=== PATIENT | male | born 1960 | race Caucasian/White ===

== ENCOUNTER → 2017-10-05 | Outpatient (CLI) | payer BC ==
--- NOTE | 2017-10-05 14:08 | CT ---
EXAMINATION TYPE: CT soft tissue neck w con DATE OF EXAM: 10/05/2017 HISTORY: SWOLLEN NECK AND PAIN X3-4 MONTHS. 100ML OF OMNI 300. PRIOR ON 12.18.14. SCANNED BY: ANDRA AND TM . COMPARISON: CT neck December 18, 2014 CT DLP: 825 mGycm. Automated Exposure Control for Dose Reduction was Utilized. TECHNIQUE: CT scan of the neck is performed with IV Contrast, patient injected with 100 mL of Omnipa que 300, axial images are obtained, coronal and sagittal reformatted images are reviewed. FINDINGS: Airway: There is persistent prominence of the adenoid tonsils posterior nasopharynx and prominence of the palate or palatine tonsils with prominence of the uvula. Blockage of nasal pharyngeal airway is redemonstrated. Oral pharyngeal airway remains narrowed. Region of epiglottis and vallecula appears w ithin normal limits. Region of the piriform sinuses and vocal cords is felt within normal limits. Hyp opharyngeal airway to proximal trachea is unremarkable. There is mild emphysematous change in lung ap ices with increased AP diameter proximal trachea noted. Thyroid gland is unremarkable. Parotid/submandibular glands: No gross abnormality seen. Carotid/Vascular Structures: There is mild calcified plaque left carotid bulb extending into proximal internal carotid artery redemonstrated more prominent versus prior. No significant stenosis is seen. Osseous Structures: There is loss of normal cervical curvature with mild spurring and disc space narr owing C5-C6 level redemonstrated. Other: No suspicious greater than 1 cm neck adenopathy is seen. There are scattered subcentimeter lym ph nodes throughout the neck bilaterally redemonstrated. Patchy opacification bilateral anterior ethmoid sinuses is redemonstrated on current study. IMPRESSION: Mild emphysematous change redemonstrated. Possible tonsillitis, correlate clinically. No suspicious mass or adenopathy identified. No significant change from prior study.
== END | disposition home or self-care (01) ==
LOC: RADCTMAIN 12:42
PROVIDERS: ATTEND Family Medicine
DX: R59.9 Enlarged lymph nodes, unspecified (principal)
CPT/HCPCS: 70491; Q9967

== ENCOUNTER 2017-11-26 08:05 | Day surgery (SDC) | payer BC ==
[2017-11-17 16:08] VITALS: BMI 29.9
[~2017-11-26 08:05] MED LIST: DEXAMETHASONE SOD PHOSPHATE 10 MG/ML 1 ML VIAL IV ONE; DEXAMETHASONE SOD PHOSPHATE 4 MG/ML 1 ML VIAL IV ONE; FAMOTIDINE 20 MG/2 ML VIAL IV ONE; HYDROmorphone 0.5 MG/0.5 ML SYRINGE IVP PRN; LACTATED RINGERS 1,000 ML IV SCH; MIDAZOLAM 2 MG/2 ML VIAL IV PRN; ONDANSETRON 4 MG/2 ML VIAL IVP ONE; Pre Op ABX Message 1 EACH MISC MISCELLANE ONE
[2017-11-26] MEDS: OXYMETAZOLINE 0.05% NASL SPRAY 1 SPRAY BOTTLE NASAL ONE ×6 (08:39→09:02)
[2017-11-26 08:48] VITALS: RESP 16
[2017-11-26] MEDS ORDERED: PROPOFOL 10 MG/ML 20 ML VIAL IV ONE (09:51)
[2017-11-26] MEDS ORDERED: DEXAMETHASONE SOD PHOS (MDV) 100 MG/10 ML VIAL ONE (09:51)
[2017-11-26] MEDS ORDERED: fentaNYL (PF) 50 MCG/ML 2 ML AMP ONE (09:51)
[2017-11-26] MEDS ORDERED: MIDAZOLAM 2 MG/2 ML VIAL ONE (09:51)
[2017-11-26] MEDS ORDERED: SUCCINYLCHOLINE CHLORIDE 100 MG/5 ML SYR IV ONE (09:51)
[2017-11-26 10:44] VITALS: TEMP 963
--- NOTE | 2017-11-26 10:52 | P.OP ---
Date of Procedure: 11/26/17 Preoperative Diagnosis: Throat pain, nasopharyngeal mass, tonsillar lesion left side, obstructive sleep apnea syndrome Postoperative Diagnosis: Same Procedure(s) Performed: Direct microscopic laryngoscopy with a left tonsil biopsy and a endoscopic removal of a nasopharyngeal mass left-sided Anesthesia: FERNIEA Surgeon: Timi Bowles Estimated Blood Loss (ml): 10 Pathology: other (Left tonsil and nasopharynx) Condition: stable Disposition: PACU Indications for Procedure: This patient has throat pain that has been intermittent but problematic. He has sleep apnea and examination revealed a mass in the left nasopharynx along with some hypertrophy of the hypopharynx. After long discussion we recommended biopsy of this left nasopharyngeal mass along with a direct microscopic laryngoscopy and possible biopsy. All risks, benefits, and alternative therapies were discussed. Consent was obtained and all questions were answered. Operative Findings: Left nasal pharyngeal mass and left tonsillar cystic abscess type lesion noted there was some hypopharyngeal erythema possibly related to laryngopharyngeal reflux Description of Procedure: This patient was taken to the operative room and placed in the supine position. A general inhalation anesthetic was administered to the patient by mask and subsequently intubated with a cuffed endotracheal tube by the department of anesthesia with a functioning IV line in place. Patient was monitored throughout the entire case by the department of anesthesia. A Jako laryngoscope was placed into the patient's mouth with care to avoid any trauma to the lips teeth gums and tongue. Ulcers open tongue was depressed and the entire Mar and hypopharynx was evaluated including the piriform sinus, aryepiglottic folds, base of tongue etc. etc. after complete examination, the left tonsil area revealed a cystic-type mass which was removed with biopsy forceps. Rest of the examination was unremarkable. There was evidence of laryngopharyngeal reflux disease. In addition, the nasopharynx was evaluated with use of an endoscope and we removed a left nasopharyngeal mass directly with biopsy forceps. Hemostasis was spontaneous and complete. The patient tolerated this well and will be taken to postanesthesia recovery in excellent condition. The patient is to contact me if any problems should arise. Cauterization with use of suction electrocautery granulation was used to stop the bleeding of the nasopharynx. We utilized a 0 Gilbert alexis scope for this procedure. We also assisted with use of a mcgivor mouth gag and the tonsil suction.
[2017-11-26 11:56] VITALS: BP 136/85; PULSE 67
== END 2017-11-26 12:11 | disposition home or self-care (01) ==
LOC: OR 08:05
PROVIDERS: ATTEND Otolaryngology
DX: J35.01 Chronic tonsillitis (principal); J03.90 Acute tonsillitis, unspecified; J31.1 Chronic nasopharyngitis; I10 Essential (primary) hypertension; Z86.73 Personal history of transient ischemic attack (TIA), and cerebral infarction without residual deficits; K21.9 Gastro-esophageal reflux disease without esophagitis; E78.5 Hyperlipidemia, unspecified; J44.9 Chronic obstructive pulmonary disease, unspecified; Z87.891 Personal history of nicotine dependence; Z79.899 Other long term (current) drug therapy; J45.909 Unspecified asthma, uncomplicated; N40.0 Benign prostatic hyperplasia without lower urinary tract symptoms; F32.9 Major depressive disorder, single episode, unspecified; F41.9 Anxiety disorder, unspecified; E78.00 Pure hypercholesterolemia, unspecified; Z79.82 Long term (current) use of aspirin; Z79.51 Long term (current) use of inhaled steroids; Z79.52 Long term (current) use of systemic steroids
CPT/HCPCS: 31535; 88305; 88312; J2250; J1100 ×2; J2405; J3010; J0330; J2704

== ENCOUNTER 2018-12-19 18:52 | Emergency (ER) | payer BC, OTHER ==
[2018-12-19] MEDS ORDERED: SODIUM CHLORIDE 0.9% 1,000 ML IV STA (18:54)
[2018-12-19] MEDS ORDERED: PANTOPRAZOLE 40 MG/10 ML VIAL IVP STA (18:54)
[2018-12-19 18:58] VITALS: TEMP 99
--- NOTE | 2018-12-19 19:02 | ED ---
GI Bleed HPI - General Stated complaint: Rectal Bleeding Time Seen by Provider: 12/19/18 18:52 Source: patient, EMS, RN notes reviewed Mode of arrival: EMS - History of Present Illness Initial comments: This is a 4-year-old male with a history of hemorrhoids and polyp removal in the past who states he does have intermittent bleeding at times a time due to his hemorrhoids who states that about an hour and half prior to arrival he felt sudden urge to have a bowel movement and had a large amount of blood per rectum. He states it was bright red blood. He had several other episodes. He was finally brought in by EMS. Initial contact revealed a blood pressure 95/43 he was given a 400 mL bolus with improvement of his systolic pressure 121. Upon arrival here however was 85/43 per paramedics. He felt somewhat woozy and lightheadedness but no palpitations he denies any abdominal pain. No nausea vomiting or other symptoms he is a former smoker who quit about a year ago. He does occasionally drink alcohol. No other modifying factors at this time. He is on omeprazole for GERD MD complaint: gross hematochezia - Related Data Home Medications Medication Instructions Recorded Confirmed Atenolol [Tenormin] 25 mg PO DAILY 08/10/15 12/19/18 Omeprazole 20 mg PO QAM 08/10/15 12/19/18 Cholecalciferol [Vitamin D3] 1,000 unit PO DAILY 11/17/17 12/19/18 Aspirin EC [Ecotrin Low Dose] 81 mg PO DAILY 12/19/18 12/19/18 Citalopram Hydrobromide [CeleXA] 20 mg PO DAILY 12/19/18 12/19/18 Trospium Chloride 20 mg PO BID 12/19/18 12/19/18 Allergies Allergy/AdvReac Type Severity Reaction Status Date / Time No Known Allergies Allergy Verified 11/26/17 08:30 Review of Systems ROS Statement: Those systems with pertinent positive or pertinent negative responses have been documented in the HPI. ROS Other: All systems not noted in ROS Statement are negative. Past Medical History Past Medical History: COPD, CVA/TIA, GERD/Reflux, Hyperlipidemia, Hypertension, Sleep Apnea/CPAP/BIPAP Additional Past Medical History / Comment(s): TIA-no effects, HEMORRHOIDS, seizure as child, History of Any Multi-Drug Resistant Organisms: None Reported Past Surgical History: Cholecystectomy Additional Past Surgical History / Comment(s): sinus surgery Past Anesthesia/Blood Transfusion Reactions: No Reported Reaction Smoking Status: Current every day smoker - Past Family History Mother Family Medical History: No Reported History Father Family Medical History: COPD General Exam - General Exam Comments Initial Comments: This is a well-developed well-nourished awake alert oriented times 3 male General appearance: alert, anxious Head exam: Present: atraumatic, normocephalic, normal inspection Eye exam: Present: normal appearance, PERRL, EOMI. Absent: scleral icterus, conjunctival injection, periorbital swelling ENT exam: Present: normal exam, mucous membranes moist Neck exam: Present: normal inspection. Absent: tenderness, meningismus, lymphadenopathy Respiratory exam: Present: normal lung sounds bilaterally. Absent: respiratory distress, wheezes, rales, rhonchi, stridor Cardiovascular Exam: Present: regular rate, normal rhythm, normal heart sounds. Absent: systolic murmur, diastolic murmur, rubs, gallop, clicks GI/Abdominal exam: Present: soft, normal bowel sounds. Absent: distended, tenderness, guarding, rebound, rigid Extremities exam: Present: normal inspection, full ROM, normal capillary refill. Absent: tenderness, pedal edema, joint swelling, calf tenderness Back exam: Present: normal inspection Neurological exam: Present: alert, oriented X3, CN II-XII intact Psychiatric exam: Present: normal affect, normal mood Skin exam: Present: warm, dry, intact, normal color. Absent: rash Course Vital Signs 12/19/18 12/19/18 12/19/18 18:54 19:30 20:30 Temperature 99.0 F Pulse Rate 90 92 91 Respiratory 18 18 20 Rate Blood Pressure 110/68 113/67 102/63 O2 Sat by Pulse 97 97 97 Oximetry - Reevaluation(s) Reevaluation #1: 12/19/18 21:10 Monitoring: line puller was ordered on the patient due to hypotensive episodes and need to monitor for dysrhythmia. Sinus rhythm at the time 88 bpm. Medical Decision Making - Medical Decision Making I did reevaluate patient several occasions he had no further bleeding episodes. I did perform a rectal exam on the patient he does look suspicious for Hemoccult positivity. No gross blood at the time no masses. I did a long discussion with the patient regarding the findings he was offered admission and is refusing at this time. I did go over many different possibilities as etiology with the patient he still does not want stay. He will come back if is any issues. He states he will follow-up either with Dr. Yoo or Dr. Parks. The patient's is present during this conversation. - Lab Data Result diagrams: 12/19/18 19:14 12/19/18 19:14 Lab Results 12/19/18 12/19/18 12/19/18 Range/Units 19:10 19:14 19:14 WBC 4.8 (3.8-10.6) k/uL RBC 3.57 L (4.30-5.90) m/uL Hgb 12.2 L (13.0-17.5) gm/dL Hct 34.9 L (39.0-53.0) % MCV 97.8 (80.0-100.0) fL MCH 34.1 (25.0-35.0) pg MCHC 34.8 (31.0-37.0) g/dL RDW 12.5 (11.5-15.5) % Plt Count 246 (150-450) k/uL Neutrophils % 47 % Lymphocytes % 38 % Monocytes % 9 % Eosinophils % 2 % Basophils % 1 % Neutrophils # 2.2 (1.3-7.7) k/uL Lymphocytes # 1.8 (1.0-4.8) k/uL Monocytes # 0.4 (0-1.0) k/uL Eosinophils # 0.1 (0-0.7) k/uL Basophils # 0.1 (0-0.2) k/uL PT (9.0-12.0) sec INR (<1.2) APTT (22.0-30.0) sec Sodium 125 L (137-145) mmol/L Potassium 4.5 (3.5-5.1) mmol/L Chloride 95 L (98-107) mmol/L Carbon Dioxide 19 L (22-30) mmol/L Anion Gap 11 mmol/L BUN 10 (9-20) mg/dL Creatinine 0.90 (0.66-1.25) mg/dL Est GFR (CKD-EPI)AfAm >90 (>60 ml/min/1.73 sqM) Est GFR (CKD-EPI)NonAf >90 (>60 ml/min/1.73 sqM) Glucose 97 (74-99) mg/dL Calcium 8.6 (8.4-10.2) mg/dL Magnesium 1.7 (1.6-2.3) mg/dL Total Bilirubin 0.8 (0.2-1.3) mg/dL AST 42 (17-59) U/L ALT 36 (21-72) U/L Alkaline Phosphatase 78 (38-126) U/L Total Creatine Kinase (55-170) U/L CK-MB (CK-2) (0.0-2.4) ng/mL CK-MB (CK-2) Rel Index Troponin I (0.000-0.034) ng/mL Total Protein 6.6 (6.3-8.2) g/dL Albumin 3.8 (3.5-5.0) g/dL Stool Occult Blood (Negative) Blood Type A Positive Blood Type Confirm Blood Type Recheck CABO Indicated Antibody Screen NEGATIVE Spec Expiration Date 12/22/2018230912/19/18 12/19/18 12/19/18 Range/Units 19:14 19:14 20:26 WBC (3.8-10.6) k/uL RBC (4.30-5.90) m/uL Hgb (13.0-17.5) gm/dL Hct (39.0-53.0) % MCV (80.0-100.0) fL MCH (25.0-35.0) pg MCHC (31.0-37.0) g/dL RDW (11.5-15.5) % Plt Count (150-450) k/uL Neutrophils % % Lymphocytes % % Monocytes % % Eosinophils % % Basophils % % Neutrophils # (1.3-7.7) k/uL Lymphocytes # (1.0-4.8) k/uL Monocytes # (0-1.0) k/uL Eosinophils # (0-0.7) k/uL Basophils # (0-0.2) k/uL PT 9.9 (9.0-12.0) sec INR 0.9 (<1.2) APTT 23.7 (22.0-30.0) sec Sodium (137-145) mmol/L Potassium (3.5-5.1) mmol/L Chloride (98-107) mmol/L Carbon Dioxide (22-30) mmol/L Anion Gap mmol/L BUN (9-20) mg/dL Creatinine (0.66-1.25) mg/dL Est GFR (CKD-EPI)AfAm (>60 ml/min/1.73 sqM) Est GFR (CKD-EPI)NonAf (>60 ml/min/1.73 sqM) Glucose (74-99) mg/dL Calcium (8.4-10.2) mg/dL Magnesium (1.6-2.3) mg/dL Total Bilirubin (0.2-1.3) mg/dL AST (17-59) U/L ALT (21-72) U/L Alkaline Phosphatase (38-126) U/L Total Creatine Kinase 187 H (55-170) U/L CK-MB (CK-2) 3.6 H (0.0-2.4) ng/mL CK-MB (CK-2) Rel Index 1.9 Troponin I <0.012 (0.000-0.034) ng/mL Total Protein (6.3-8.2) g/dL Albumin (3.5-5.0) g/dL Stool Occult Blood (Negative) Blood Type Blood Type Confirm A Positive Blood Type Recheck Antibody Screen Spec Expiration Date 12/19/18 Range/Units 20:55 WBC (3.8-10.6) k/uL RBC (4.30-5.90) m/uL Hgb (13.0-17.5) gm/dL Hct (39.0-53.0) % MCV (80.0-100.0) fL MCH (25.0-35.0) pg MCHC (31.0-37.0) g/dL RDW (11.5-15.5) % Plt Count (150-450) k/uL Neutrophils % % Lymphocytes % % Monocytes % % Eosinophils % % Basophils % % Neutrophils # (1.3-7.7) k/uL Lymphocytes # (1.0-4.8) k/uL Monocytes # (0-1.0) k/uL Eosinophils # (0-0.7) k/uL Basophils # (0-0.2) k/uL PT (9.0-12.0) sec INR (<1.2) APTT (22.0-30.0) sec Sodium (137-145) mmol/L Potassium (3.5-5.1) mmol/L Chloride (98-107) mmol/L Carbon Dioxide (22-30) mmol/L Anion Gap mmol/L BUN (9-20) mg/dL Creatinine (0.66-1.25) mg/dL Est GFR (CKD-EPI)AfAm (>60 ml/min/1.73 sqM) Est GFR (CKD-EPI)NonAf (>60 ml/min/1.73 sqM) Glucose (74-99) mg/dL Calcium (8.4-10.2) mg/dL Magnesium (1.6-2.3) mg/dL Total Bilirubin (0.2-1.3) mg/dL AST (17-59) U/L ALT (21-72) U/L Alkaline Phosphatase (38-126) U/L Total Creatine Kinase (55-170) U/L CK-MB (CK-2) (0.0-2.4) ng/mL CK-MB (CK-2) Rel Index Troponin I (0.000-0.034) ng/mL Total Protein (6.3-8.2) g/dL Albumin (3.5-5.0) g/dL Stool Occult Blood Positive (Negative) Blood Type Blood Type Confirm Blood Type Recheck Antibody Screen Spec Expiration Date - EKG Data -: EKG Interpreted by In EKG shows normal: sinus rhythm, intervals, QRS complexes, ST-T waves (Sinus rhythm of 88. Interval 154 QRS 94 QT since QTC 358/433) Rate: normal - Radiology Data Radiology results: report reviewed, image reviewed Disposition Clinical Impression: Hematochezia, Lower GI bleed, Hypotensive episode Disposition: Left Against Medical Advice Condition: Stable Additional Instructions: Continue with your proton pump inhibitor. Return if any problems. Is patient prescribed a controlled substance at d/c from ED?: No Referrals: Ariela Maradiaga DO [Primary Care Provider] - 1-2 days Fahad Parks MD [STAFF PHYSICIAN] - 1-2 days Ilana Yoo MD [STAFF PHYSICIAN] - 1-2 days
[2018-12-19 19:35] LABS: Basophils # (A) 0.1 k/uL (0-0.2); Basophils % (A) 1 %; Eosinophils # (A) 0.1 k/uL (0-0.7); Eosinophils % (A) 2 %; HCT 34.9 % (39.0-53.0); HGB 12.2 gm/dL (13.0-17.5); Lymphocytes # (A) 1.8 k/uL (1.0-4.8); Lymphocytes % (A) 38 %; MCH 34.1 pg (25.0-35.0); MCHC 34.8 g/dL (31.0-37.0); MCV 97.8 fL (80.0-100.0); Mean Platelet Volume 6.8; Monocytes # (A) 0.4 k/uL (0-1.0); Monocytes % (A) 9 %; Neutrophils # (A) 2.2 k/uL (1.3-7.7); Neutrophils % (A) 47 %; Platelet Count 246 k/uL (150-450); RBC 3.57 m/uL (4.30-5.90); RDW 12.5 % (11.5-15.5); WBC 4.8 k/uL (3.8-10.6)
[2018-12-19 19:44] LABS: INR 0.9 (<1.2); Partial Thromboplastin Time 23.7 sec (22.0-30.0); Prothrombin Time 9.9 sec (9.0-12.0)
[2018-12-19 19:53] LABS: ALT 36 U/L (21-72); AST 42 U/L (17-59); Albumin 3.8 g/dL (3.5-5.0); Alkaline Phosphatase 78 U/L (38-126); Anion Gap 11 mmol/L; Blood Urea Nitrogen 10 mg/dL (9-20); Calcium 8.6 mg/dL (8.4-10.2); Carbon Dioxide 19 mmol/L (22-30); Chloride 95 mmol/L (98-107); Glucose 97 mg/dL (74-99); Magnesium 1.7 mg/dL (1.6-2.3); Potassium 4.5 mmol/L (3.5-5.1); Sodium 125 mmol/L (137-145); Total Bilirubin 0.8 mg/dL (0.2-1.3); Total Protein 6.6 g/dL (6.3-8.2)
[2018-12-19 19:59] LABS: Creatine Kinase 187 U/L (55-170)
[2018-12-19 20:12] LABS: Creatine Kinase MB 3.6 ng/mL (0.0-2.4); Troponin I <0.012 ng/mL (0.000-0.034)
--- NOTE | 2018-12-19 20:27 | XR ---
EXAMINATION TYPE: XR chest 1V portable DATE OF EXAM: 12/19/2018 COMPARISON: 04/23/2016 HISTORY: Abdominal pain. TECHNIQUE: Single frontal view of the chest is obtained. FINDINGS: There is no heart failure nor confluent pneumonic infiltrate. Costophrenic angles are riaz r. Heart appears slightly enlarged. There is no pleural effusion. There are chest leads. IMPRESSION: No active cardiopulmonary disease. Borderline cardiomegaly. Heart appears increased slig htly compared to old exam.
--- NOTE | 2018-12-19 20:28 | XR ---
EXAMINATION TYPE: XR KUB portable DATE OF EXAM: 12/19/2018 COMPARISON: 04/23/2016 HISTORY: Abdominal pain TECHNIQUE: 2 views supine FINDINGS: There is no sign of intestinal obstruction or pneumoperitoneum. Fecal pattern is normal. Th ere are clips from cholecystectomy. Lung bases are clear. IMPRESSION: Nonacute abdomen.
[2018-12-19 21:26] VITALS: BP 110/60; PULSE 84; RESP 18
== END 2018-12-19 21:44 | disposition left against medical advice (07) ==
LOC: EC 18:52
DX: K92.1 Melena (principal); I95.9 Hypotension, unspecified; K21.9 Gastro-esophageal reflux disease without esophagitis; I10 Essential (primary) hypertension; G47.30 Sleep apnea, unspecified; Z99.89 Dependence on other enabling machines and devices; F17.200 Nicotine dependence, unspecified, uncomplicated; Z86.73 Personal history of transient ischemic attack (TIA), and cerebral infarction without residual deficits; Z53.29 Procedure and treatment not carried out because of patient's decision for other reasons; Z79.82 Long term (current) use of aspirin; Z79.899 Other long term (current) drug therapy; Z90.49 Acquired absence of other specified parts of digestive tract
CPT/HCPCS: 36415; 93005; 86900; 86901; 80053; 82550; 82553; 83735; 84484; 85025; 85610; 85730; 86850; 82272; 71045; 74018; 99284; 96374; 96361 ×2; C9113

== ENCOUNTER 2019-06-21 08:07 | Day surgery (SDC) | payer BC, OTHER ==
[2019-06-15 11:11] VITALS: BMI 31.1
[~2019-06-21 08:07] MED LIST changes: -DEXAMETHASONE SOD PHOSPHATE 10 MG/ML 1 ML VIAL IV ONE; -DEXAMETHASONE SOD PHOSPHATE 4 MG/ML 1 ML VIAL IV ONE; -FAMOTIDINE 20 MG/2 ML VIAL IV ONE; -HYDROmorphone 0.5 MG/0.5 ML SYRINGE IVP PRN; -MIDAZOLAM 2 MG/2 ML VIAL IV PRN; -ONDANSETRON 4 MG/2 ML VIAL IVP ONE; -Pre Op ABX Message 1 EACH MISC MISCELLANE ONE
[2019-06-21 08:23] VITALS: RESP 16; TEMP 98
[2019-06-21] MEDS ORDERED: LIDOCAINE 1% 20 ML VIAL (10MG/ML) FOR IV START INTRADERMA ONE (08:31)
[2019-06-21] MEDS ORDERED: PROPOFOL 10 MG/ML 20 ML VIAL IV ONE (09:05)
[2019-06-21] MEDS ORDERED: MIDAZOLAM 2 MG/2 ML VIAL ONE (09:05)
--- NOTE | 2019-06-21 09:10 | P.GSHP ---
History of Present Illness H&P Date: 06/21/19 Chief Complaint: GI bleed This is a 58-year-old male complaints of rectal bleeding. Patient presents today for colonoscopy. Patient history of hemorrhoids. Past Medical History Past Medical History: COPD, CVA/TIA, GERD/Reflux, Hyperlipidemia, Hypertension, Sleep Apnea/CPAP/BIPAP Additional Past Medical History / Comment(s): TIA-no effects, HEMORRHOIDS, seizure as child, RECENT RECTAL BLEEDING History of Any Multi-Drug Resistant Organisms: None Reported Past Surgical History: Cholecystectomy Additional Past Surgical History / Comment(s): sinus surgery. COLONOSCOPY Past Anesthesia/Blood Transfusion Reactions: No Reported Reaction Smoking Status: Former smoker - Past Family History Mother Family Medical History: No Reported History Father Family Medical History: COPD Medications and Allergies Home Medications Medication Instructions Recorded Confirmed Type Atenolol [Tenormin] 25 mg PO DAILY 08/10/15 06/15/19 History Omeprazole 20 mg PO QAM 08/10/15 06/15/19 History Cholecalciferol [Vitamin D3] 1,000 unit PO DAILY 11/17/17 06/15/19 History Aspirin EC [Ecotrin Low Dose] 81 mg PO DAILY 12/19/18 06/15/19 History Citalopram Hydrobromide [CeleXA] 20 mg PO DAILY 12/19/18 06/15/19 History Trospium Chloride 20 mg PO BID 12/19/18 06/15/19 History Allergies Allergy/AdvReac Type Severity Reaction Status Date / Time No Known Allergies Allergy Verified 06/21/19 08:20 Surgical - Exam Vital Signs Temp Pulse Resp BP Pulse Ox 98 F 102 H 16 154/85 97 06/21/19 08:22 06/21/19 08:22 06/21/19 08:22 06/21/19 08:22 06/21/19 08:22 - General well developed, well nourished, no distress - Eyes PERRL - ENT normal pinna - Neck no masses - Respiratory normal expansion - Cardiovascular Rhythm: regular - Abdomen Abdomen: soft, non tender Assessment and Plan Assessment: GI bleed. We'll perform colonoscopy.
--- NOTE | 2019-06-21 09:24 | P.OP ---
Date of Procedure: 06/21/19 Preoperative Diagnosis: GI bleed Postoperative Diagnosis: Internal hemorrhoids Mild diverticulosis Procedure(s) Performed: Colonoscopy Anesthesia: MAC Surgeon: Fahad Parks Pathology: none sent Condition: stable Disposition: PACU Description of Procedure: The patient's placed on the endoscopy table lateral position. He received IV sedation. Digital rectal exam was performed which revealed a few internal hemorrhoids. Flexible colonoscope was then placed patient anus passed throughout the entire colon. The ileocecal valve was visualized. The cecum, ascending and transverse colon appeared normal. The descending and; had mild diverticular changes. Scope was then brought back the rectum this appeared normal. Scope was retroflexed and there were mild internal hemorrhoids noted. Scope was withdrawn for patient. It is presumed his bleeding is due to internal hemorrhoids.
[2019-06-21 10:03] VITALS: BP 128/78; PULSE 80
== END 2019-06-21 09:58 | disposition home or self-care (01) ==
LOC: ORWHC2ENDO 08:07
PROVIDERS: ATTEND Surgery
DX: K57.30 Diverticulosis of large intestine without perforation or abscess without bleeding (principal); K64.8 Other hemorrhoids; E78.5 Hyperlipidemia, unspecified; I10 Essential (primary) hypertension; J44.9 Chronic obstructive pulmonary disease, unspecified; K21.9 Gastro-esophageal reflux disease without esophagitis; G47.33 Obstructive sleep apnea (adult) (pediatric); Z79.82 Long term (current) use of aspirin; Z86.73 Personal history of transient ischemic attack (TIA), and cerebral infarction without residual deficits; Z87.891 Personal history of nicotine dependence; Z83.6 Family history of other diseases of the respiratory system; Z79.899 Other long term (current) drug therapy; Z99.89 Dependence on other enabling machines and devices
CPT/HCPCS: 45378; J2250; J2704

== ENCOUNTER → 2019-08-31 | Outpatient (CLI) | payer BC, OTHER ==
[2019-08-31 12:48] LABS: Basophils # (A) 0.1 k/uL (0-0.2); Basophils % (A) 1 %; Eosinophils # (A) 0.1 k/uL (0-0.7); Eosinophils % (A) 3 %; HCT 37.9 % (39.0-53.0); Lymphocytes # (A) 1.5 k/uL (1.0-4.8); Lymphocytes % (A) 40 %; MCH 33.3 pg (25.0-35.0); MCHC 34.2 g/dL (31.0-37.0); MCV 97.3 fL (80.0-100.0); Mean Platelet Volume 6.1; Monocytes # (A) 0.5 k/uL (0-1.0); Monocytes % (A) 12 %; Neutrophils # (A) 1.6 k/uL (1.3-7.7); Neutrophils % (A) 41 %; Platelet Count 271 k/uL (150-450); RDW 12.4 % (11.5-15.5); WBC 3.9 k/uL (3.8-10.6)
[2019-08-31 18:40] LABS: Anion Gap 7.7 mmol/L (4.00-12.00); BUN/Creat Ratio 14.29 Ratio (12.00-20.00); Calcium 8.8 mg/dL (8.7-10.3); Carbon Dioxide 24.3 mmol/L (21.6-31.8); Potassium 4.7 mmol/L (3.5-5.5)
== END | disposition home or self-care (01) ==
LOC: LABWHC1 11:52
PROVIDERS: ATTEND Urology
DX: N40.1 Benign prostatic hyperplasia with lower urinary tract symptoms (principal); Z79.2 Long term (current) use of antibiotics
CPT/HCPCS: 36415; 80048; 85025; 93005

== ENCOUNTER 2019-09-26 16:46 | Emergency (ER) | payer BC, OTHER ==
[2019-09-26] MEDS ORDERED: LIDOCAINE URO-JET JELLY 2% 5 ML KIT URETHRAL ONE (18:24)
[2019-09-26 18:59] LABS: Appearance,Urine Cloudy (Clear); Bilirubin,Urine Negative (Negative); Blood,Urine Large (Negative); Color,Urine Red; Glucose,Urine (UA) Negative (Negative); Ketones,Urine Negative (Negative); Leukocyte Esterase,Urine Small (Negative); Nitrite,Urine Negative (Negative); PH, Urine 7.5 (5.0-8.0); Protein,Urine 2+ (Negative); RBC,Urine >182 /hpf (0-5); Specific Gravity,Urine 1.015 (1.001-1.035); Urobilinogen,Urine <2.0 mg/dL (<2.0)
[2019-09-26] MEDS ORDERED: CEPHALEXIN 500 MG CAP PO STA (19:20)
--- NOTE | 2019-09-26 19:20 | ED ---
Male Urogenital HPI - General Chief complaint: Urogenital Stated complaint: Urinary problems Time Seen by Provider: 09/26/19 17:43 Source: patient Mode of arrival: ambulatory Limitations: no limitations - History of Present Illness Initial comments: Patient is a 59-year-old male presenting to emergency Department with complaints of urinary retention since about 6 hours prior to arrival. Patient states he had prostate surgery approximately 2 weeks ago and has been doing fine since his surgery however yesterday and today he has been noticing blood in his urine. Patient states he is only able to urinate a few drops at a time. Patient states he has had about 6 beers today as well. Patient is having some lower abdominal discomfort secondary to the retention. Patient denies recent fever, chills, vomiting, diarrhea. Patient has no other complaints at this time. Patient's urologist is Dr. Ho. Vital signs are stable upon arrival. - Related Data Home Medications Medication Instructions Recorded Confirmed Atenolol [Tenormin] 25 mg PO DAILY 08/10/15 06/15/19 Omeprazole 20 mg PO QAM 08/10/15 06/15/19 Cholecalciferol [Vitamin D3] 1,000 unit PO DAILY 11/17/17 06/15/19 Aspirin EC [Ecotrin Low Dose] 81 mg PO DAILY 12/19/18 06/15/19 Citalopram Hydrobromide [CeleXA] 20 mg PO DAILY 12/19/18 06/15/19 Trospium Chloride 20 mg PO BID 12/19/18 06/15/19 Previous Rx's Medication Instructions Recorded Cephalexin [Keflex] 500 mg PO Q6HR 7 Days #28 cap 09/26/19 Allergies Allergy/AdvReac Type Severity Reaction Status Date / Time No Known Allergies Allergy Verified 06/21/19 08:20 Review of Systems ROS Statement: Those systems with pertinent positive or pertinent negative responses have been documented in the HPI. ROS Other: All systems not noted in ROS Statement are negative. Past Medical History Past Medical History: COPD, CVA/TIA, GERD/Reflux, Hyperlipidemia, Hypertension, Sleep Apnea/CPAP/BIPAP Additional Past Medical History / Comment(s): TIA-no effects, HEMORRHOIDS, seizure as child, RECENT RECTAL BLEEDING History of Any Multi-Drug Resistant Organisms: None Reported Past Surgical History: Cholecystectomy Additional Past Surgical History / Comment(s): sinus surgery. COLONOSCOPY Past Anesthesia/Blood Transfusion Reactions: No Reported Reaction Past Psychological History: Anxiety, Depression, Panic Disorder Smoking Status: Current every day smoker Past Alcohol Use History: Daily, Heavy Past Drug Use History: None Reported - Past Family History Mother Family Medical History: No Reported History Father Family Medical History: COPD General Exam - General Exam Comments Initial Comments: GENERAL: Well-appearing, well-nourished and in no acute distress. HEAD: Atraumatic, normocephalic. EYES: Pupils equal round and reactive to light, extraocular movements intact, sclera anicteric, conjunctiva are normal. ENT: TMs normal, nares patent, oropharynx clear without exudates. Moist mucous membranes. NECK: Normal range of motion, supple without lymphadenopathy or JVD. LUNGS: Breath sounds clear to auscultation bilaterally and equal. No wheezes rales or rhonchi. HEART: Regular rate and rhythm without murmurs, rubs or gallops. ABDOMEN: Discomfort upon palpation in the lower abdomen prior to Lam catheter. Upon reassessment, no abdominal tenderness. Soft, normoactive bowel sounds. No guarding, no rebound. No masses appreciated. : Deferred EXTREMITIES: Normal range of motion, no pitting or edema. No clubbing or cyanosis. NEUROLOGICAL: Normal speech, normal gait. PSYCH: Normal mood, normal affect. SKIN: Warm, Dry, normal turgor, no rashes or lesions noted. Limitations: no limitations Course Vital Signs 09/26/19 09/26/19 09/26/19 17:25 19:24 19:34 Temperature 98.5 F 98.3 F 98.3 F Pulse Rate 101 H 77 77 Respiratory 19 17 17 Rate Blood Pressure 171/98 127/92 127/92 O2 Sat by Pulse 99 97 97 Oximetry Medical Decision Making - Medical Decision Making Patient is 59-year-old male presenting with urinary retention for approximately 6 hours prior to arrival. Patient recently had prostate surgery 2 weeks ago. Bladder scan revealed almost a liter of fluids. After Lam was placed, approximately 800 mL of urine drained. UA shows significant amount of hematuria as well as WBC's. Patient will be placed on antibiotic and will follow up with Dr. Damon tomorrow. Lam remain in place. Patient is stable for discharge at this time and he is in agreement with this plan of care. Return parameters were discussed with the patient and he verbalized understanding. He is discus sed with Dr. Davila. - Lab Data Lab Results 09/26/19 Range/Units 18:38 Urine Color Red Urine Appearance Cloudy (Clear) Urine pH 7.5 (5.0-8.0) Ur Specific [place] 1.015 (1.001-1.035) Urine Protein 2+ H (Negative) Urine Glucose (UA) Negative (Negative) Urine Ketones Negative (Negative) Urine Blood Large H (Negative) Urine Nitrite Negative (Negative) Urine Bilirubin Negative (Negative) Urine Urobilinogen <2.0 (<2.0) mg/dL Ur Leukocyte Esterase Small H (Negative) Urine RBC >182 H (0-5) /hpf Urine WBC >182 H (0-5) /hpf Urine WBC Clumps Few H (None) /hpf Disposition Clinical Impression: Hematuria Disposition: HOME SELF-CARE Condition: Stable Instructions (If sedation given, give patient instructions): Hematuria (ED) Additional Instructions: Please return to the Emergency Department if symptoms worsen or any other concerns. Follow-up with Dr. Ho tomorrow as discussed. Prescriptions: Cephalexin [Keflex] 500 mg PO Q6HR 7 Days #28 cap Is patient prescribed a controlled substance at d/c from ED?: No Referrals: Ariela Maradiaga DO [Primary Care Provider] - 1-2 days
[2019-09-26 19:25] VITALS: BP 127/92; PULSE 77; RESP 17; TEMP 98.3
== END 2019-09-26 19:34 | disposition home or self-care (01) ==
LOC: EC 16:46
DX: R31.9 Hematuria, unspecified (principal); K21.9 Gastro-esophageal reflux disease without esophagitis; I10 Essential (primary) hypertension; F41.0 Panic disorder [episodic paroxysmal anxiety]; F32.9 Major depressive disorder, single episode, unspecified; G47.30 Sleep apnea, unspecified; F17.200 Nicotine dependence, unspecified, uncomplicated; Z79.82 Long term (current) use of aspirin; Z79.899 Other long term (current) drug therapy; Z86.73 Personal history of transient ischemic attack (TIA), and cerebral infarction without residual deficits
CPT/HCPCS: 51702; 81001; 87086; 99284

== ENCOUNTER 2019-09-26 23:24 | Emergency (ER) | payer BC, OTHER ==
[2019-09-27 00:11] VITALS: BP 148/93; PULSE 96; RESP 17; TEMP 98.6
--- NOTE | 2019-09-27 00:15 | ED ---
Male Urogenital HPI - General Chief complaint: Urogenital Stated complaint: Revisit/Catheter Issues Time Seen by Provider: 09/26/19 23:38 Source: patient, family Mode of arrival: ambulatory Limitations: no limitations - History of Present Illness Initial comments: 59-year-old male patient presents to the emergency department today for evaluation for urinary obstruction. Patient was seen and evaluated earlier in the day for the same and had a Lam catheter placed. He was having hematuria was passing clots. Patient states that he was discharged from this ED around 9 PM. States he drinks a couple of beers. States that he has the urge to urinate but there is no fluid coming out in the bag. He is reporting suprapubic pressure. Patient did have a TURP procedure 2 weeks ago and has been having some hematuria but is seemed to worsen today. Denies any dizziness or weakness. Denies any use of anticoagulants or antiplatelet medications. Patient denies any recent rash, fever, chills, shortness breath, chest pain, abdominal pain, nausea, vomiting, diarrhea, constipation, back pain, numbness, tingling, dizziness, weakness, headache, visual changes, or any other complaints. - Related Data Home Medications Medication Instructions Recorded Confirmed Atenolol [Tenormin] 25 mg PO DAILY 08/10/15 06/15/19 Omeprazole 20 mg PO QAM 08/10/15 06/15/19 Cholecalciferol [Vitamin D3] 1,000 unit PO DAILY 11/17/17 06/15/19 Aspirin EC [Ecotrin Low Dose] 81 mg PO DAILY 12/19/18 06/15/19 Citalopram Hydrobromide [CeleXA] 20 mg PO DAILY 12/19/18 06/15/19 Trospium Chloride 20 mg PO BID 12/19/18 06/15/19 Previous Rx's Medication Instructions Recorded Cephalexin [Keflex] 500 mg PO Q6HR 7 Days #28 cap 09/26/19 Allergies Allergy/AdvReac Type Severity Reaction Status Date / Time No Known Allergies Allergy Verified 09/26/19 23:35 Review of Systems ROS Statement: Those systems with pertinent positive or pertinent negative responses have been documented in the HPI. ROS Other: All systems not noted in ROS Statement are negative. Past Medical History Past Medical History: COPD, CVA/TIA, GERD/Reflux, Hyperlipidemia, Hypertension, Sleep Apnea/CPAP/BIPAP Additional Past Medical History / Comment(s): TIA-no effects, HEMORRHOIDS, seizure as child, RECENT RECTAL BLEEDING History of Any Multi-Drug Resistant Organisms: None Reported Past Surgical History: Cholecystectomy Additional Past Surgical History / Comment(s): sinus surgery. COLONOSCOPY Past Anesthesia/Blood Transfusion Reactions: No Reported Reaction Past Psychological History: Anxiety, Depression, Panic Disorder Smoking Status: Current every day smoker Past Alcohol Use History: Daily, Heavy Past Drug Use History: None Reported - Past Family History Mother Family Medical History: No Reported History Father Family Medical History: COPD General Exam Limitations: no limitations General appearance: alert, in no apparent distress, other (This is a well- developed, well-nourished adult male patient in no acute distress. Vital signs upon presentation are temperature 98.0F, pulse 117, respirations 28, blood pressure 197/100, pulse ox 98% on room air.) Eye exam: Present: normal appearance, PERRL, EOMI. Absent: scleral icterus, conjunctival injection, periorbital swelling ENT exam: Present: normal exam, normal oropharynx, mucous membranes moist Cardiovascular Exam: Present: regular rate, normal rhythm, normal heart sounds. Absent: systolic murmur, diastolic murmur, rubs, gallop, clicks GI/Abdominal exam: Present: soft, tenderness (Suprapubic), normal bowel sounds. Absent: distended, guarding, rebound, rigid Neurological exam: Present: alert, oriented X3, CN II-XII intact Psychiatric exam: Present: normal affect, normal mood Skin exam: Present: warm, dry, intact, normal color. Absent: rash Course Vital Signs 09/26/19 09/27/19 23:33 00:09 Temperature 98.0 F 98.6 F Pulse Rate 117 H 96 Respiratory 28 H 17 Rate Blood Pressure 197/100 148/93 O2 Sat by Pulse 98 94 L Oximetry Medical Decision Making - Medical Decision Making 59-year-old male patient presents to the emergency department today for evaluation of an obstructed Lam catheter. Physical examination revealed some suprapubic tenderness. He is afebrile. I did perform irrigation with sterile water to the Lam catheter which did immediately release the obstruction. Patient had 600 mL of bloody urine output in the bag. He did have urinalysis earlier in the day. Patient continued to have output while in the ED. Bladder scan showed less than 50ml. He will be discharged to follow up with the urologist tomorrow. I did educate and patient on how to irrigate the catheter. They were given supplies to do so at home. Return parameters discussed in detail. Patient verbalizes understanding and agrees with this plan. Disposition Clinical Impression: Obstructed Lam catheter Disposition: HOME SELF-CARE Condition: Good Instructions (If sedation given, give patient instructions): Lam Catheter Placement and Care (ED) Additional Instructions: If catheter becomes clogged performed irrigation as you were taught. Use no more that 40ml of sterile water. If you have any concerns or are uncomfortable performing the procedure return immediately to the emergency department. Follow-up with the urologist for further evaluation as soon as possible. Is patient prescribed a controlled substance at d/c from ED?: No Referrals: Ariela Maradiaga DO [Primary Care Provider] - 1-2 days Time of Disposition: 00:14
== END 2019-09-27 01:26 | disposition home or self-care (01) ==
LOC: EC 23:24
DX: T83.098A Other mechanical complication of other urinary catheter, initial encounter (principal); R31.9 Hematuria, unspecified; K21.9 Gastro-esophageal reflux disease without esophagitis; I10 Essential (primary) hypertension; G47.30 Sleep apnea, unspecified; F32.9 Major depressive disorder, single episode, unspecified; F41.9 Anxiety disorder, unspecified; F17.200 Nicotine dependence, unspecified, uncomplicated; Z79.82 Long term (current) use of aspirin; Z79.899 Other long term (current) drug therapy; Z86.73 Personal history of transient ischemic attack (TIA), and cerebral infarction without residual deficits; Z99.89 Dependence on other enabling machines and devices
CPT/HCPCS: 99283

== ENCOUNTER 2019-09-28 00:23 | Emergency (ER) | payer BC, OTHER ==
[2019-09-28 00:33] VITALS: BP 153/94; PULSE 95; RESP 18; TEMP 98.3
--- NOTE | 2019-09-28 01:08 | ED ---
Male Urogenital HPI - General Chief complaint: Urogenital Stated complaint: Urine Retention Time Seen by Provider: 09/28/19 00:45 Source: patient Mode of arrival: ambulatory Limitations: no limitations - History of Present Illness Initial comments: 59-year-old male patient presents to the emergency department today for evaluation of his Lam catheter. Patient had a prostate surgery 2 weeks ago. States that he was having bloody urine however yesterday developed more concentrated gross hematuria with passage of clots. Patient was seen twice in the emergency department yesterday for obstruction of his catheter. He was educated regarding irrigation and discharged home. States he did speak to his urologist today who instructed him to continue irrigate eating and monitoring the urine output. Patient states that this evening the urine has become more clear and he has had less passage of clots. He is concerned it may be becoming obstructed again. He does feel the urge to urinate. He denies any suprapubic pressure or pain. There is urine output in the catheter collection bag. - Related Data Home Medications Medication Instructions Recorded Confirmed Atenolol [Tenormin] 25 mg PO DAILY 08/10/15 06/15/19 Omeprazole 20 mg PO QAM 08/10/15 06/15/19 Cholecalciferol [Vitamin D3] 1,000 unit PO DAILY 11/17/17 06/15/19 Aspirin EC [Ecotrin Low Dose] 81 mg PO DAILY 12/19/18 06/15/19 Citalopram Hydrobromide [CeleXA] 20 mg PO DAILY 12/19/18 06/15/19 Trospium Chloride 20 mg PO BID 12/19/18 06/15/19 Previous Rx's Medication Instructions Recorded Cephalexin [Keflex] 500 mg PO Q6HR 7 Days #28 cap 09/26/19 Allergies Allergy/AdvReac Type Severity Reaction Status Date / Time No Known Allergies Allergy Verified 09/28/19 00:32 Review of Systems ROS Statement: Those systems with pertinent positive or pertinent negative responses have been documented in the HPI. ROS Other: All systems not noted in ROS Statement are negative. Past Medical History Past Medical History: COPD, CVA/TIA, GERD/Reflux, Hyperlipidemia, Hypertension, Sleep Apnea/CPAP/BIPAP Additional Past Medical History / Comment(s): TIA-no effects, HEMORRHOIDS, seizure as child, RECENT RECTAL BLEEDING History of Any Multi-Drug Resistant Organisms: None Reported Past Surgical History: Cholecystectomy Additional Past Surgical History / Comment(s): sinus surgery. COLONOSCOPY, prostate surgery, Past Anesthesia/Blood Transfusion Reactions: No Reported Reaction Past Psychological History: Anxiety, Depression, Panic Disorder Smoking Status: Current every day smoker Past Alcohol Use History: Daily, Heavy Past Drug Use History: None Reported - Past Family History Mother Family Medical History: No Reported History Father Family Medical History: COPD General Exam Limitations: no limitations General appearance: alert, in no apparent distress, other (This is a well- developed, well-nourished adult male patient in no acute distress. Vital signs upon presentation are temperature 98.3F, pulse 95, respirations 18, blood pressure 153/94, pulse ox 100% on room air.) Eye exam: Present: normal appearance, PERRL, EOMI. Absent: scleral icterus, conjunctival injection, periorbital swelling ENT exam: Present: normal exam, normal oropharynx, mucous membranes moist Respiratory exam: Present: normal lung sounds bilaterally. Absent: respiratory distress, wheezes, rales, rhonchi, stridor Cardiovascular Exam: Present: regular rate, normal rhythm, normal heart sounds. Absent: systolic murmur, diastolic murmur, rubs, gallop, clicks GI/Abdominal exam: Present: soft, normal bowel sounds. Absent: distended, tenderness, guarding, rebound, rigid Neurological exam: Present: alert, oriented X3, CN II-XII intact Psychiatric exam: Present: normal affect, normal mood Skin exam: Present: warm, dry, intact, normal color. Absent: rash Course Vital Signs 09/28/19 00:27 Temperature 98.3 F Pulse Rate 95 Respiratory 18 Rate Blood Pressure 153/94 O2 Sat by Pulse 100 Oximetry Medical Decision Making - Medical Decision Making 59-year-old male patient presents to the emergency department today for evaluation of his Lam catheter. Physical examination reveals soft nontender abdomen. There is clear pink urine noted in the urine collection bag. Bladder scan was performed and showed evidence for 24-35 mL of urine. It appears that the Lam catheter is functioning appropriately. Patient was mostly concerned because the urine change from red to clear and he didn't want to go to sleep in case there was a problem. We did discuss irrigation if the catheter should become obstructed. He is instructed follow up with his urologist as soon as possible. Return parameters discussed in detail. He verbalizes understanding and agrees with this plan. Disposition Clinical Impression: Lam catheter problem Disposition: HOME SELF-CARE Condition: Good Instructions (If sedation given, give patient instructions): Lam Catheter Placement and Care (ED) Additional Instructions: Follow-up with your urologist in her primary care physician for recheck as soon as possible. Return to the emergency department immediately for any new, worsening, or concerning symptoms. Is patient prescribed a controlled substance at d/c from ED?: No Referrals: Ariela Maradiaga DO [Primary Care Provider] - 1-2 days Time of Disposition: 01:08
== END 2019-09-28 01:29 | disposition home or self-care (01) ==
LOC: EC 00:23
DX: T83.098A Other mechanical complication of other urinary catheter, initial encounter (principal); R33.9 Retention of urine, unspecified; F41.9 Anxiety disorder, unspecified; F32.9 Major depressive disorder, single episode, unspecified; K21.9 Gastro-esophageal reflux disease without esophagitis; I10 Essential (primary) hypertension; G47.30 Sleep apnea, unspecified; F17.200 Nicotine dependence, unspecified, uncomplicated; Z79.82 Long term (current) use of aspirin; Z79.899 Other long term (current) drug therapy; Z99.89 Dependence on other enabling machines and devices; Z86.73 Personal history of transient ischemic attack (TIA), and cerebral infarction without residual deficits
CPT/HCPCS: 99283

== ENCOUNTER → 2020-04-09 | Outpatient (CLI) | payer BC, OTHER ==
--- NOTE | 2020-04-09 09:28 | FL ---
EXAMINATION TYPE: FL barium swallow DATE OF EXAM: 04/09/2020 COMPARISON: None HISTORY: Dysphasia reflux throat pain TECHNIQUE: A double air contrast UGI study is performed. FINDINGS: Esophagus dilates to normal caliber has normal contour gastroesophageal junction. Gastroesophageal ju nction opens to normal caliber. There is a prominent cricopharyngeus muscle, however no hesitancy pas sing through this region is evident throughout the examination including dedicated observation. There is complete stripping of the esophageal bolus in the horizontal drinking position. IMPRESSIONS: 1. Normal esophagram
--- NOTE | 2020-04-09 09:52 | CT ---
EXAMINATION TYPE: CT soft tissue neck w con DATE OF EXAM: 04/09/2020 COMPARISON: 10/05/2017 HISTORY: Lump in throat,Pain in throat CT DLP: 680.1 mGycm CONTRAST: Patient injected with 100 mL of Isovue 300. TECHNIQUE: Axial images at 3 mm thick sections. Reconstructed images in the coronal plane and sagitt al plane are reviewed. FINDINGS: Limited CT sections are obtained the lung apices. There is a small area of pneumonitis wit hin the posterior medial right apex. Series 3 image lung apices are otherwise clear. CT neck: The torus tubarius and fossa of Rosenmuller are normal. Temperer spaces are normal. Para nasal sinuses and mastoid air cells are clear. Parotid glands appear normal and symmetrical. Left submandibular gland may be slightly more prominent than the right. Parapharyngeal spaces are normal. No suspicious adenopathy is evident. The hypopharynx appears small, patient may have been swallowing during the time of the examination. D iscrete mass is not identified. Direct visualization may be useful. Vocal cord level appear symmetrical. Thyroid as visualized is normal. Note is made of some uncovertebral joint hypertrophy contributing to foraminal narrowing within the m id to lower cervical spine. Some degenerative disc changes present C5-6. Small amount of anterior [place] tebral body spurring is present C5 and C6. IMPRESSIONS: 1. Small hypopharynx may be related to patient swallowing in positioning during the examination. Disc rete underlying suspicious mass is not identified.
== END | disposition home or self-care (01) ==
LOC: RADCTMAIN 08:04
PROVIDERS: ATTEND Otolaryngology Plastic Surgery within the Head & Neck
DX: R07.0 Pain in throat (principal); R13.10 Dysphagia, unspecified
CPT/HCPCS: 74220; 70491; Q9967

== ENCOUNTER 2020-04-11 12:03 | Inpatient (IN) | payer BC, OTHER ==
[2020-04-11] MEDS ORDERED: SODIUM CHLORIDE 0.9% 1,000 ML IV STA (12:44)
--- NOTE | 2020-04-11 12:57 | ED ---
General Adult HPI - General Chief complaint: Weakness Stated complaint: weakness, confusion Time Seen by Provider: 04/11/20 12:20 Source: patient, RN notes reviewed, old records reviewed Mode of arrival: wheelchair Limitations: altered mental status, physical limitation - History of Present Illness Initial comments: 59-year-old male presenting with confusion, lack of motivation, fatigue. Patient has been paranoid, depressed. This is occurring over the past several weeks. He also reports increased urination. He was seen at an outside hospital after a fall and was told that he had a low sodium level. He has been drinking approximately 15 beers daily for the past 12 years. No fever. No vomiting or diarrhea. No dysuria but there is urinary frequency. - Related Data Home Medications Medication Instructions Recorded Confirmed Atenolol [Tenormin] 25 mg PO DAILY 08/10/15 04/11/20 Omeprazole 20 mg PO QAM 08/10/15 04/11/20 Cholecalciferol [Vitamin D3] 1,000 unit PO HS 11/17/17 04/11/20 Trospium Chloride 20 mg PO BID 12/19/18 04/11/20 Aspirin 162.5 mg PO DAILY 04/11/20 04/11/20 Cyanocobalamin (Vitamin B-12) 1,000 mcg PO DAILY 04/11/20 04/11/20 [Vitamin B-12] Fluticasone Nasal [place] [Flonase 2 spr EA NOSTRIL DAILY 04/11/20 04/11/20 Nasal [place]] Folic Acid 1 mg PO DAILY 04/11/20 04/11/20 Lansoprazole [Prevacid] 15 mg PO HS 04/11/20 04/11/20 Magnesium Oxide [Mag-Ox] 400 mg PO HS 04/11/20 04/11/20 Simvastatin [Zocor] 40 mg PO HS 04/11/20 04/11/20 Thiamine [Vitamin B-1] 100 mg PO DAILY 04/11/20 04/11/20 Allergies Allergy/AdvReac Type Severity Reaction Status Date / Time No Known Allergies Allergy Verified 04/11/20 13:54 Review of Systems ROS Statement: Those systems with pertinent positive or pertinent negative responses have been documented in the HPI. ROS Other: All systems not noted in ROS Statement are negative. Past Medical History Past Medical History: COPD, CVA/TIA, GERD/Reflux, Hyperlipidemia, Hypertension, Sleep Apnea/CPAP/BIPAP Additional Past Medical History / Comment(s): TIA-no effects, HEMORRHOIDS, seizure as child, RECENT RECTAL BLEEDING History of Any Multi-Drug Resistant Organisms: None Reported Past Surgical History: Cholecystectomy Additional Past Surgical History / Comment(s): sinus surgery. COLONOSCOPY, prostate surgery, Past Anesthesia/Blood Transfusion Reactions: No Reported Reaction Past Psychological History: Anxiety, Depression, Panic Disorder Smoking Status: Current every day smoker Past Alcohol Use History: Daily, Heavy Past Drug Use History: None Reported - Past Family History Mother Family Medical History: No Reported History Father Family Medical History: COPD General Exam Limitations: altered mental status, physical limitation General appearance: alert, in no apparent distress Head exam: Present: atraumatic, normocephalic Eye exam: Present: normal appearance, PERRL, nystagmus ENT exam: Present: mucous membranes dry Neck exam: Present: normal inspection. Absent: tenderness, meningismus Respiratory exam: Present: normal lung sounds bilaterally. Absent: respiratory distress, wheezes Cardiovascular Exam: Present: regular rate, normal rhythm GI/Abdominal exam: Present: soft. Absent: distended, tenderness, guarding Extremities exam: Present: normal inspection, normal capillary refill. Absent: pedal edema Neurological exam: Present: alert, oriented X3, other (Normal [id number] bilaterally). Absent: motor sensory deficit Psychiatric exam: Present: depressed Skin exam: Present: warm, dry, intact. Absent: cyanosis, diaphoretic Course Vital Signs 04/11/20 12:12 Temperature 98.5 F Pulse Rate 86 Respiratory 18 Rate Blood Pressure 175/96 O2 Sat by Pulse 100 Oximetry EKG Findings - EKG Comments: EKG Findings:: EKG: Normal sinus rhythm, rate of 79, LA interval 198, QRS dur ation 98, QTC [address] segment elevation. Medical Decision Making - Medical Decision Making 59-year-old male with several weeks of progressive memory loss, confusion, urea. Patient has a nonfocal neurologic exam. Head CT is performed, showed chronic ischemic changes with no acute findings. He has a sodium of 124. Mild lactic acid 2.5, alcohol is 142. Chest x-ray negative for acute cardiopulmonary disease. I suspect there is a component of both hyponatremia and Wernicke's encephalopathy from thiamine deficiency. He is placed on IV thiamine, normal saline infusion. He will be admitted for vitamin and electrolyte replacement, case is discussed with Dr. Weiner who will admit. Neurology placed on consult. - Lab Data Result diagrams: 04/11/20 13:22 04/11/20 13:22 Lab Results 04/11/20 04/11/20 04/11/20 Range/Units 13:22 13:22 13:22 WBC 4.0 (3.8-10.6) k/uL RBC 3.96 L (4.30-5.90) m/uL Hgb 13.0 (13.0-17.5) gm/dL Hct 37.2 L (39.0-53.0) % MCV 94.0 (80.0-100.0) fL MCH 32.9 (25.0-35.0) pg MCHC 34.9 (31.0-37.0) g/dL RDW 13.9 (11.5-15.5) % Plt Count 209 (150-450) k/uL Neutrophils % 52 % Lymphocytes % 36 % Monocytes % 7 % Eosinophils % 2 % Basophils % 1 % Neutrophils # 2.1 (1.3-7.7) k/uL Lymphocytes # 1.5 (1.0-4.8) k/uL Monocytes # 0.3 (0-1.0) k/uL Eosinophils # 0.1 (0-0.7) k/uL Basophils # 0.0 (0-0.2) k/uL PT 9.9 (9.0-12.0) sec INR 0.9 (<1.2) APTT 25.2 (22.0-30.0) sec Sodium (137-145) mmol/L Potassium (3.5-5.1) mmol/L Chloride (98-107) mmol/L Carbon Dioxide (22-30) mmol/L Anion Gap mmol/L BUN (9-20) mg/dL Creatinine (0.66-1.25) mg/dL Est GFR (CKD-EPI)AfAm (>60 ml/min/1.73 sqM) Est GFR (CKD-EPI)NonAf (>60 ml/min/1.73 sqM) Glucose (74-99) mg/dL Plasma Lactic Acid [place] (0.7-2.0) mmol/L Calcium (8.4-10.2) mg/dL Magnesium (1.6-2.3) mg/dL Total Bilirubin (0.2-1.3) mg/dL AST (17-59) U/L ALT (4-49) U/L Alkaline Phosphatase (38-126) U/L Creatine Kinase (55-170) U/L Total Protein (6.3-8.2) g/dL Albumin (3.5-5.0) g/dL Urine Color Colorless Urine Appearance Clear (Clear) Urine pH 7.0 (5.0-8.0) Ur Specific [place] 1.003 (1.001-1.035) Urine Protein Negative (Negative) Urine Glucose (UA) Negative (Negative) Urine Ketones Negative (Negative) Urine Blood Negative (Negative) Urine Nitrite Negative (Negative) Urine Bilirubin Negative (Negative) Urine Urobilinogen <2.0 (<2.0) mg/dL Ur Leukocyte Esterase Negative (Negative) Serum Alcohol mg/dL 04/11/20 04/11/20 Range/Units 13:22 13:22 WBC (3.8-10.6) k/uL RBC (4.30-5.90) m/uL Hgb (13.0-17.5) gm/dL Hct (39.0-53.0) % MCV (80.0-100.0) fL MCH (25.0-35.0) pg MCHC (31.0-37.0) g/dL RDW (11.5-15.5) % Plt Count (150-450) k/uL Neutrophils % % Lymphocytes % % Monocytes % % Eosinophils % % Basophils % % Neutrophils # (1.3-7.7) k/uL Lymphocytes # (1.0-4.8) k/uL Monocytes # (0-1.0) k/uL Eosinophils # (0-0.7) k/uL Basophils # (0-0.2) k/uL PT (9.0-12.0) sec INR (<1.2) APTT (22.0-30.0) sec Sodium 124 L (137-145) mmol/L Potassium 4.2 (3.5-5.1) mmol/L Chloride 92 L (98-107) mmol/L Carbon Dioxide 20 L (22-30) mmol/L Anion Gap 12 mmol/L BUN 5 L (9-20) mg/dL Creatinine 0.61 L (0.66-1.25) mg/dL Est GFR (CKD-EPI)AfAm >90 (>60 ml/min/1.73 sqM) Est GFR (CKD-EPI)NonAf >90 (>60 ml/min/1.73 sqM) Glucose 94 (74-99) mg/dL Plasma Lactic Acid [place] 2.5 H* (0.7-2.0) mmol/L Calcium 8.8 (8.4-10.2) mg/dL Magnesium 1.7 (1.6-2.3) mg/dL Total Bilirubin 0.8 (0.2-1.3) mg/dL AST 83 H (17-59) U/L ALT 70 H (4-49) U/L Alkaline Phosphatase 94 (38-126) U/L Creatine Kinase 235 H (55-170) U/L Total Protein 7.2 (6.3-8.2) g/dL Albumin 4.6 (3.5-5.0) g/dL Urine Color Urine Appearance (Clear) Urine pH (5.0-8.0) Ur Specific [place] (1.001-1.035) Urine Protein (Negative) Urine Glucose (UA) (Negative) Urine Ketones (Negative) Urine Blood (Negative) Urine Nitrite (Negative) Urine Bilirubin (Negative) Urine Urobilinogen (<2.0) mg/dL Ur Leukocyte Esterase (Negative) Serum Alcohol 142 mg/dL Disposition Clinical Impression: Encephalopathy, Dehydration, Hyponatremia Disposition: ADMITTED IP TO THIS [facility] Condition: Stable Is patient prescribed a controlled substance at d/c from ED?: No Referrals: [facility],Clinic [Primary Care Provider] - 1-2 days Decision to Admit Reason: Admit from EC Decision Date: 04/11/20 Decision Time: 14:42
[2020-04-11] MEDS ORDERED: THIAMINE 200 MG in SODIUM CHLORIDE 0.9% 100 ML IVPB ONE (13:30)
[2020-04-11 13:35] LABS: Basophils % (A) 1 %; Eosinophils # (A) 0.1 k/uL (0-0.7); Eosinophils % (A) 2 %; HCT 37.2 % (39.0-53.0); Lymphocytes # (A) 1.5 k/uL (1.0-4.8); Lymphocytes % (A) 36 %; MCH 32.9 pg (25.0-35.0); MCHC 34.9 g/dL (31.0-37.0); Monocytes # (A) 0.3 k/uL (0-1.0); Monocytes % (A) 7 %; Neutrophils # (A) 2.1 k/uL (1.3-7.7); Neutrophils % (A) 52 %; Platelet Count 209 k/uL (150-450); RBC 3.96 m/uL (4.30-5.90); RDW 13.9 % (11.5-15.5)
[2020-04-11 13:50] LABS: ALT 70 U/L (4-49); AST 83 U/L (17-59); African American GFR (CKD) >90 (>60 ml/min/1.73 sqM); Albumin 4.6 g/dL (3.5-5.0); Alkaline Phosphatase 94 U/L (38-126); Anion Gap 12 mmol/L; Appearance,Urine Clear (Clear); Bilirubin,Urine Negative (Negative); Blood Urea Nitrogen 5 mg/dL (9-20); Blood,Urine Negative (Negative); Calcium 8.8 mg/dL (8.4-10.2); Carbon Dioxide 20 mmol/L (22-30); Chloride 92 mmol/L (98-107); Color,Urine Colorless; Creatine Kinase 235 U/L (55-170); Glucose 94 mg/dL (74-99); Glucose,Urine (UA) Negative (Negative); Ketones,Urine Negative (Negative); Leukocyte Esterase,Urine Negative (Negative); Magnesium 1.7 mg/dL (1.6-2.3); Nitrite,Urine Negative (Negative); Non-African American GFR(CKD) >90 (>60 ml/min/1.73 sqM); Potassium 4.2 mmol/L (3.5-5.1); Protein,Urine Negative (Negative); Sodium 124 mmol/L (137-145); Specific Gravity,Urine 1.003 (1.001-1.035); Total Bilirubin 0.8 mg/dL (0.2-1.3); Total Protein 7.2 g/dL (6.3-8.2); Urobilinogen,Urine <2.0 mg/dL (<2.0)
[2020-04-11 13:51] LABS: Alcohol 142 mg/dL
[2020-04-11 13:54] LABS: INR 0.9 (<1.2); Partial Thromboplastin Time 25.2 sec (22.0-30.0); Prothrombin Time 9.9 sec (9.0-12.0)
--- NOTE | 2020-04-11 13:58 | CT ---
EXAMINATION TYPE: CT brain wo con DATE OF EXAM: 04/11/2020 COMPARISON: 04/23/2016 HISTORY: generalized weakness, fatigue, confusion CT DLP: 1173.[address] of the brain was performed. The ventricles, basal cisterns and sulci overlying the cerebral convexities demonstrate mild enlargem ent. There is no evidence for intracranial hemorrhage or sulcal effacement. There is decreased attenuation about the periventricular white matter and deep white matter of both c erebral hemispheres, compatible with chronic small vessel ischemia. Differential diagnosis does inclu de demyelination. No mass effects are seen.No midline shift. Osseous calvarium is intact. If symptoms persist consider MRI. IMPRESSION: 1. Age related atrophic and chronic small vessel ischemic change without acute intracranial process s een at this time.
--- NOTE | 2020-04-11 14:00 | XR ---
EXAMINATION TYPE: XR chest 2V DATE OF EXAM: 04/11/2020 COMPARISON: 12/19/2018 HISTORY: Shortness of breath TECHNIQUE: Frontal and lateral views of the chest are obtained. FINDINGS: Scattered senescent parenchymal changes noted. Hyperinflation compatible with COPD. No evidence for infiltrate. No evidence for atelectasis. Heart size is stable. Mediastinal structures are stable and grossly unremarkable. No evidence for hilar prominence. Degenerative changes dorsal spine. IMPRESSION: 1. No evidence for acute pulmonary disease.
[2020-04-11] MEDS ORDERED: LORazepam 2 MG/ML INJ IV PRN ×2 (14:38)
[2020-04-11] MEDS ORDERED: NALOXONE 0.4 MG/ML 1 ML VIAL IV PRN (14:39)
[2020-04-11] MEDS ORDERED: THIAMINE 100 MG/ML 2 ML VIAL IM STA (14:40)
[2020-04-11] MEDS: SODIUM CHLORIDE 0.9% 1,000 ML IV SCH (16:34)
[2020-04-11] MEDS ORDERED: THIAMINE 100 MG TAB PO SCH (17:30)
[2020-04-11] MEDS ORDERED: NICOTINE 21MG/24HR PATCH TRANSDERM STA (19:59)
[2020-04-11] MEDS: LORazepam 2 MG/ML INJ IV PRN (20:07)
[2020-04-11] MEDS: THIAMINE 200 MG in SODIUM CHLORIDE 0.9% 100 ML IVPB SCH (21:39)
[2020-04-12] MEDS ORDERED: cloNIDine HCL 0.1 MG TAB PO PRN (00:13)
[2020-04-12] MEDS ORDERED: HYDROcodone/APAP 5-325MG 1 EACH TAB PO PRN (00:14)
[2020-04-12] MEDS ORDERED: HYDROmorphone 0.5 MG/0.5 ML SYRINGE IVP PRN (00:14)
[2020-04-12] MEDS: SODIUM CHLORIDE 0.9% 1,000 ML IV SCH ×3 (06:30→21:47)
--- NOTE | 2020-04-12 06:50 | HP ---
HISTORY AND PHYSICAL DATE OF SERVICE: 04/12/2020 CHIEF COMPLAINTS: Weakness and confusion. HISTORY OF PRESENT ILLNESS: This 59-year-old gentleman with a past medical history of multiple medical problems including COPD, CVA, TIA, GERD, hyperlipidemia, history of hypertension, being followed at [facility] in the outpatient setting was complaining of change in mental status and some confusion and weakness. The patient also had increased urination. The patient was apparently in outside hospital. The patient also had apparently low sodium level and the patient was taken to [facility] and sodium was found to be 124 and the patient admitted for further evaluation and treatment. The lactic acid also elevated 2.5. Alcohol level was 142. There is no history of any fever, rigors. No history of headache, loss of consciousness or seizures at this time. PAST MEDICAL HISTORY: History of COPD, CVA, GERD, hypertension, hyperlipidemia, sleep apnea, TIA, history of cholecystectomy. MEDICATIONS: Medications prior to admission include home medications are: 1. Thiamine 100 mg p.o. daily. 2. Vitamin B12, 1000 mcg p.o. daily. 3. Magnesium oxide 400 mg. 4. Prevacid. 5. Aspirin. 6. Zocor. 7. Folic acid. 8. Fluticasone. 9. Spiriva. 10.Omeprazole. 11.Vitamin D3. 12.Atenolol. Doses are reviewed. ALLERGIES: None. FAMILY HISTORY: No history of heart disease or strokes in family. SOCIAL HISTORY: History of cigarette smoking. No alcohol intake. REVIEW OF SYSTEMS: ENT: Diminished hearing and diminished vision. CARDIOVASCULAR SYSTEM: No angina. RESPIRATORY SYSTEM: As mentioned earlier. GI: As mentioned earlier. : No dysuria. NERVOUS SYSTEM: No numbness otherwise as mentioned. ALLERGY/IMMUNOLOGY: No history of asthma. MUSCULOSKELETAL: As mentioned earlier. HEMATOLOGY: No history of anemia. ENDOCRINE: No history of diabetes or hypothyroidism. CONSTITUTIONAL: As mentioned earlier. DERMATOLOGY: Negative. RHEUMATOLOGY: Negative PSYCHIATRY: As mentioned earlier. PHYSICAL EXAMINATION: The patient is alert and oriented x3. Pulse 86, blood pressure 175/89, respiration 18, temperature 98.7, pulse ox 96% on room air. HEENT: Conjunctivae normal. Oral mucosa moist. NECK: No jugular venous distention. No carotid bruit. No lymph node enlargement. CARDIOVASCULAR: S1, S2 muffled. No S3, no S4. RESPIRATORY: Breath sounds are diminished at the bases. A few scattered rhonchi, no crackles. ABDOMEN: Soft, nontender. LEGS: No edema, no swelling. NERVOUS SYSTEM: Diffusely weak. LYMPHATICS: No lymphadenopathy of the neck, axillae or groin. SKIN: No ulcer, rash or bleeding. JOINTS: No active deforming arthropathy. LABS: WBC 4, hemoglobin 13. Sodium 124. Lactic acid 2.5. AST 83, ALT is 70. Other labs are noted. ASSESSMENT: 1. Change in mental status and weakness, possibly acute alcohol intoxication and acute delirium tremens. 2. Hyponatremia, severe. 3. Elevated lactic acid secondary to dehydration. 4. Alcoholic hepatitis with increased AST and ALT. 5. Hypertension. 6. Chronic obstructive pulmonary disease. 7. History of cerebrovascular accident , transient ischemic attack. 8. Gastroesophageal reflux disease. 9. Hyperlipidemia. 10.Sleep apnea. 11.History of hemorrhoids. 12.Seizure as a child. 13.History of cholecystectomy. 14.Anxiety, depression, panic disorder. 15.History of nicotine dependence. 16.History of EtOH. 17.FULL CODE. RECOMMENDATIONS AND DISCUSSION: Recommend to continue current medications. Continues symptomatic treatment. Otherwise at this time, we will initiate CIWA protocol. PT, OT evaluation otherwise clonidine and Habitrol protocol. Repeat labs. Prognosis guarded because of multiple complex medical issues. Further recommendations to follow. MMODL / IJN: [id number] /
[2020-04-12 07:49] LABS: ALT 64 U/L (4-49); AST 68 U/L (17-59); African American GFR (CKD) >90 (>60 ml/min/1.73 sqM); Albumin 4.7 g/dL (3.5-5.0); Alkaline Phosphatase 92 U/L (38-126); Anion Gap 12 mmol/L; Blood Urea Nitrogen 5 mg/dL (9-20); Calcium 9.3 mg/dL (8.4-10.2); Carbon Dioxide 22 mmol/L (22-30); Chloride 94 mmol/L (98-107); Glucose 107 mg/dL (74-99); Non-African American GFR(CKD) >90 (>60 ml/min/1.73 sqM); Potassium 4.5 mmol/L (3.5-5.1); Sodium 128 mmol/L (137-145); Total Bilirubin 1.9 mg/dL (0.2-1.3); Total Protein 7.7 g/dL (6.3-8.2)
[2020-04-12] MEDS ORDERED: NON FORMULARY DRUG (Omeprazole [Omeprazole] 20 MG) PO SCH (09:00)
[2020-04-12] MEDS: ASPIRIN 325 MG TAB PO SCH (09:36)
[2020-04-12] MEDS: FOLIC ACID 1 MG TAB PO SCH (09:37)
[2020-04-12] MEDS: ATENOLOL 25 MG TAB PO SCH (09:37)
[2020-04-12] MEDS: TROSPIUM CHLORIDE 20 MG TABLET PO SCH ×2 (09:37→21:50)
[2020-04-12] MEDS: CYANOCOBALAMIN 500 MCG TAB PO SCH (09:38)
[2020-04-12] MEDS: cloNIDine HCL 0.1 MG TAB PO SCH ×3 (09:38→21:50)
[2020-04-12] MEDS: THIAMINE 100 MG TAB PO SCH (09:38)
[2020-04-12] MEDS: NICOTINE 14MG/24HR PATCH TRANSDERM SCH (09:39)
[2020-04-12] MEDS: HEPARIN SODIUM,PORCINE 5,000 UNIT/ML 1 ML VIAL SQ SCH ×2 (09:39→20:06)
[2020-04-12] MEDS: THIAMINE 200 MG in SODIUM CHLORIDE 0.9% 100 ML IVPB SCH ×2 (11:30→20:06)
[2020-04-12] MEDS: FLUTICASONE 50MCG/SPRAY NASAL 16GM EA NOSTRIL SCH (11:31)
--- NOTE | 2020-04-12 14:17 | MR ---
EXAMINATION TYPE: MR angio head/neck wo con DATE OF EXAM: 04/12/2020 COMPARISON: CT neck April 11, 2011. MRA brain January 07, 2012. HISTORY: Progressive memory loss TECHNIQUE: Time of flight images focusing on the neck in the [place] are performed without c ontrast.. 2-D and 3-D postprocessing imaging is performed on MRI scanner. FINDINGS: There is codominant vertebrobasilar system. Vertebral arteries show some areas of narrowing particularly on the left approaching 50% but they are both patent to the basilar junction. No signif icant focal stenosis in the remainder of the posterior circulation. No aneurysm. Hypoplastic bilatera l posterior communicating arteries. There is hypoplastic anterior communicating artery. There is no significant focal stenosis or aneurys mal change in the anterior circulation. There is normal 3 vessel origin from the aortic arch. Visualized portion of the common and internal c arotid artery show no significant stenosis. There are patent bilateral external carotid arteries with out significant stenosis. Imaging focuses at level of the carotid bulbs. MRA neck images slightly sub optimal without IV contrast. IMPRESSION: 1. No significant stenosis near carotid bulb level bilaterally. 2. No significant stenosis or aneurysmal level of [place] of [place].
--- NOTE | 2020-04-12 14:21 | MR ---
EXAMINATION TYPE: MR brain wo con DATE OF EXAM: 04/12/2020 COMPARISON: CT brain from yesterday. Prior MRI brain November 21, 2013 HISTORY: Progressive memory loss, admitted for generalized weakness fatigue and confusion one day ear lier. TECHNIQUE: Multiplanar, multisequence imaging of the brain and brainstem is performed without IV cont rast. FINDINGS: Diffusion weighted images demonstrate no evidence of a recent infarct or other diffusion abnormality. There is ventricular and sulcal prominence redemonstrated. Some small scattered areas of T2 hyperinte nsity throughout the white matter again seen. Midline structures demonstrate normal morphology. The craniocervical junction appears within normal limits. Normal vascular flow voids are present. [id number] mucosal thickening involving ethmo id sinuses bilaterally remains present. The globes are intact bilaterally. IMPRESSION: 1. No MRI evidence for a recent infarct. 2. Mild to moderate diffuse cerebral atrophy and mild chronic small vessel ischemic changes are redem onstrated. Slight interval progression from 2014 MRI noted.
[2020-04-12] MEDS: LORazepam 2 MG/ML INJ IV PRN (20:06)
[2020-04-12] MEDS ORDERED: MAGNESIUM OXIDE 400 MG TAB PO SCH (21:00)
[2020-04-12] MEDS ORDERED: ATORVASTATIN 20 MG TAB PO SCH (21:00)
[2020-04-12] MEDS ORDERED: PANTOPRAZOLE 40 MG TABLET PO SCH (21:00)
[2020-04-12] MEDS ORDERED: CHOLECALCIFEROL 1,000 UNIT TAB PO SCH (21:00)
--- NOTE | 2020-04-12 23:46 | PN ---
PROGRESS NOTE DATE OF SERVICE: 04/12/2020 This 59-year-old gentleman admitted with weakness and confusion is being closely monitored. The patient also had hyponatremia. No chest pain or palpitation. No fever. The patient does not remember what happened yesterday and MRI of the brain was done without contrast, which showed mild to moderate diffuse cortical atrophy slight progression from 2014 was noted and MRA showed no significant abnormalities. No chest pain. No palpitations. No fever. PHYSICAL EXAMINATION: On exam, alert and oriented x3. Pulse 80, blood pressure 155/90, respirations 16, temperature 98.1, pulse ox 99% on room air. HEENT: Conjunctivae normal. Oral mucosa moist. NECK: No jugular venous distention. No carotid bruit. No lymph node enlargement. CARDIOVASCULAR: S1, S2 muffled. RESPIRATORY: Breath sounds diminished at the bases. No rhonchi. No crackles. ABDOMEN: Soft, nontender. LEGS: No edema. NERVOUS SYSTEM: No focal deficits. LABS: Labs are AST 68. Sodium is 128. ASSESSMENT: 1. Change in mental status as well as weakness possible acute alcohol intoxication and acute delirium tremens. 2. Hyponatremia, severe. 3. Elevated lactic acid secondary to dehydration. 4. Alcoholic hepatitis, increased AST, ALT. 5. Hypertension. 6. Chronic obstructive pulmonary disease. 7. History of cerebrovascular accident, transient ischemic attack. 8. History of gastroesophageal reflux disease. 9. Hyperlipidemia. 10.Sleep apnea. 11.History of hemorrhoids. 12.Seizure as a child. 13.History of cholecystectomy. 14.History of anxiety, depression and panic disorder. 15.History of nicotine dependence. 16.History of EtOH. 17.FULL CODE. RECOMMENDATIONS AND DISCUSSION: This 59-year-old gentleman who presented with multiple complex medical issues, we will monitor the patient closely. Continue the current medications, continue symptomatic treatment. Otherwise at this time we will monitor the sodium closely. CIWA protocol. Guarded prognosis because of multiple complex medical issues. Further recommendations to follow. MMODL / IJN: [id number] /
[2020-04-13 04:56] VITALS: RESP 16
[2020-04-13 07:40] LABS: Basophils % (A) 1 %; Eosinophils # (A) 0.2 k/uL (0-0.7); Eosinophils % (A) 5 %; HCT 38.2 % (39.0-53.0); Lymphocytes % (A) 36 %; MCH 30.2 pg (25.0-35.0); MCHC 31.5 g/dL (31.0-37.0); Mean Platelet Volume 7.1; Monocytes # (A) 0.4 k/uL (0-1.0); Monocytes % (A) 13 %; Neutrophils # (A) 1.2 k/uL (1.3-7.7); Neutrophils % (A) 42 %; Platelet Count 148 k/uL (150-450); RBC 3.98 m/uL (4.30-5.90); RDW 13.9 % (11.5-15.5); WBC 2.9 k/uL (3.8-10.6)
[2020-04-13 07:51] LABS: ALT 50 U/L (4-49); AST 48 U/L (17-59); African American GFR (CKD) >90 (>60 ml/min/1.73 sqM); Albumin 4.2 g/dL (3.5-5.0); Alkaline Phosphatase 74 U/L (38-126); Anion Gap 10 mmol/L; Blood Urea Nitrogen 6 mg/dL (9-20); Calcium 9.2 mg/dL (8.4-10.2); Carbon Dioxide 21 mmol/L (22-30); Chloride 96 mmol/L (98-107); Glucose 121 mg/dL (74-99); Non-African American GFR(CKD) >90 (>60 ml/min/1.73 sqM); Potassium 4.3 mmol/L (3.5-5.1); Sodium 127 mmol/L (137-145); Total Bilirubin 1.6 mg/dL (0.2-1.3); Total Protein 6.9 g/dL (6.3-8.2)
[2020-04-13] MEDS: FLUTICASONE 50MCG/SPRAY NASAL 16GM EA NOSTRIL SCH (08:55)
[2020-04-13] MEDS: FOLIC ACID 1 MG TAB PO SCH (08:55)
[2020-04-13] MEDS: cloNIDine HCL 0.1 MG TAB PO SCH (08:56)
[2020-04-13] MEDS: THIAMINE 100 MG TAB PO SCH (08:56)
[2020-04-13] MEDS: CYANOCOBALAMIN 500 MCG TAB PO SCH (08:56)
[2020-04-13] MEDS: ASPIRIN 325 MG TAB PO SCH (08:56)
[2020-04-13] MEDS: HEPARIN SODIUM,PORCINE 5,000 UNIT/ML 1 ML VIAL SQ SCH (08:56)
[2020-04-13] MEDS: TROSPIUM CHLORIDE 20 MG TABLET PO SCH (08:56)
[2020-04-13] MEDS: ATENOLOL 25 MG TAB PO SCH (08:56)
[2020-04-13] MEDS: NICOTINE 14MG/24HR PATCH TRANSDERM SCH (08:57)
[2020-04-13] MEDS: THIAMINE 200 MG in SODIUM CHLORIDE 0.9% 100 ML IVPB SCH (11:44)
[2020-04-13 11:46] VITALS: BP 140/84; PULSE 80; TEMP 98.1
--- NOTE | 2020-04-13 16:09 | P.DS ---
Providers Date of admission: 04/11/20 14:39 Expected date of discharge: 04/13/20 Attending physician: Tana Weiner Consults: 04/11/20 14:39 Consult Physician Routine Consulting Provider: Sanjuanita Fisher Consult Reason/Comments: Altered mental status, hyponatremia, concern for Wernicke's Do you want consulting provider notified?: Yes Primary care physician: [facility] Hospital Course: Final diagnosis Change in mental status as well as weakness possible acute alcohol intoxication and acute delirium tremens Hyponatremia, severe Elevated lactic acid secondary to dehydration Alcoholic hepatitis, increased AST, ALT Hypertension Chronic obstructive pulmonary disease History of CVA, TIA History of GERD hyperlipidemia Sleep apnea History of hemorrhoids Seizures as a child history of cholecystectomy history of anxiety, depression and panic disorder History of nicotine dependence History of EtOH Full code Discharge disposition Patient is being discharged in a stable condition with guarded prognosis to home. Patient will follow-up with [facility] upon discharge. Total time taken is 35 minutes. History of present illness This is an 59-year-old male who was recently admitted with weakness and confusion and was being closely monitored. Patient was also found to have hyponatremia. During hospitalization patient underwent MRI of the brain which showed mild to moderate diffuse cortical atrophy with slight progression from 2014 and MRA showed no significant abnormalities. Patient was maintained on CIWA protocol. Patient continues to be hyponatremic and was provided a prescription for repeat labs in a few days to monitor electrolytes closely. Patient instructed to follow-up with primary care provider upon discharge. Patient also instructed to avoid alcohol intake. Currently no reports of chest pain, shortness of breath, or palpitations. Patient is afebrile. No reports of nausea or vomiting and patient is tolerating diet. On exam vital signs are stable. Temp is 98.1F, pulse is 80, respirations are 16, blood pressure is 140/84, oxygen saturation is 100% on room air. Cardio S1, S2 are muffled. Respiratory shows diminished breath sounds at the bases with no wheezing or rhonchi noted. Abdomen is soft and nontender. Nervous system shows no focal deficits. Please refer to medication reconciliation sheet for a list of medications. Patient Condition at Discharge: Stable Plan - Discharge Summary Discharge Rx Participant: No New Discharge Prescriptions: New cloNIDine HCL [Catapres] 0.1 mg PO TID 30 Days #90 tab Continue Omeprazole 20 mg PO QAM Atenolol [Tenormin] 25 mg PO DAILY Cholecalciferol [Vitamin D3 (25 Mcg = 1000 Iu)] 1,000 unit PO HS Trospium Chloride 20 mg PO BID Thiamine [Vitamin B-1] 100 mg PO DAILY Magnesium Oxide [Mag-Ox] 400 mg PO HS Lansoprazole [Prevacid] 15 mg PO HS Aspirin 162.5 mg PO DAILY Simvastatin [Zocor] 40 mg PO HS Folic Acid 1 mg PO DAILY Fluticasone Nasal [place] [Flonase Nasal [place]] 2 spr EA NOSTRIL DAILY Cyanocobalamin (Vitamin B-12) [Vitamin B-12] 1,000 mcg PO DAILY Discharge Medication List Atenolol [Tenormin] 25 mg PO DAILY 08/10/15 [History] Omeprazole 20 mg PO QAM 08/10/15 [History] Cholecalciferol [Vitamin D3 (25 Mcg = 1000 Iu)] 1,000 unit PO HS 11/17/17 [History] Trospium Chloride 20 mg PO BID 12/19/18 [History] Aspirin 162.5 mg PO DAILY 04/11/20 [History] Cyanocobalamin (Vitamin B-12) [Vitamin B-12] 1,000 mcg PO DAILY 04/11/20 [History] Fluticasone Nasal [place] [Flonase Nasal [place]] 2 spr EA NOSTRIL DAILY 04/11/20 [History] Folic Acid 1 mg PO DAILY 04/11/20 [History] Lansoprazole [Prevacid] 15 mg PO HS 04/11/20 [History] Magnesium Oxide [Mag-Ox] 400 mg PO HS 04/11/20 [History] Simvastatin [Zocor] 40 mg PO HS 04/11/20 [History] Thiamine [Vitamin B-1] 100 mg PO DAILY 04/11/20 [History] cloNIDine HCL [Catapres] 0.1 mg PO TID 30 Days #90 tab 04/13/20 [Rx] Follow up Appointment(s)/Referral(s): [facility],Clinic [Primary Care Provider] - 1-2 days (The office will call you with a video appointment.) Ambulatory/Diagnostic Orders: Basic Metabolic Panel [LAB.AMB] Time Frame: 2 Days, Location: None Selected Patient Instructions/Handouts: Dehydration (GEN), Hyponatremia (GEN), Acute Delirium (GEN) Activity/Diet/Wound Care/Special Instructions: Activity Limited until follow-up Continue current diet Follow-up with primary care provider upon discharge Repeat labs in 2-3 days Avoid alcohol intake Discharge Disposition: HOME SELF-CARE
--- NOTE | 2020-04-16 09:47 | CDI ---
Documentation Clarification Form Date: 04/16/20 From: Naomi Reyna Phone: If you have a question about this query, please contact Martina Hugo, Lot Attendant at [phone] between 8am and 5pm. Admit Date: 04/11/20 Discharge Date:04/13/20 Patient Name: Vaughn Taylor Visit Number: [id number] ATTENTION: The Clinical Documentation Specialists (CDI) and [facility] Coding Staff appreciate your assistance in clarifying documentation. Please respond to the clarification below the line at the bottom and electronically sign. The CDI & [facility] Coding staff will review the response and follow-up if needed. Please note: Queries are made part of the Legal Health Record. If you have any questions, please contact the author of this message via ITS. Dear Dr. Weiner The diagnosis Encephalopathy was documented in the ED record, but is not noted in subsequent documentation. The ED physician stated 'suspect component of Wernicke's encephalopathy from thiamine deficiency". History/Risk Factors: Possible acute alcohol intoxication and acute delirium tremens, dehydration, hyponatremia Clinical Indicators: altered mental status Labs: Lactic acid 2.5, sodium 124, chloride 92, carbon dioxide 20, BUN 5, creatinine 6.1, creatine kinase 235, serum alcohol 142 CT: Brain - age related atrophic and chronic small vessel ischemic changes without acute intracranial process seen at this time MRI: Brain - no MRI evidence for a recent infarct. Mild to moderate diffuse cerebral atrophy and mild chronic small vessel ischemic changes are re- demonstrated. Slight interval progression from 2014 MRI noted. Treatment: IV Ativan, IV and IM Thiamine, 1 Liter NS bolus then at 100 mls/hr Please clarify if the Encephalopathy was Ruled out Metabolic Encephalopathy Wernicke's Encephalopathy Hepatic Encephalopathy Other, please specify Clinically unable to determine Metabolic Encephalopathy MTDD
--- NOTE | 2020-04-16 09:59 | CDI ---
Documentation Clarification Form Date: 04/16/20 From: Naomi Reyna Phone: If you have a question about this query, please contact Martina Hugo, Home Health Assistant at [phone] between 8am and 5pm. Admit Date: 04/11/20 Discharge Date:04/13/20 Patient Name: Vaughn Taylor Visit Number: [id number] ATTENTION: The Clinical Documentation Specialists (CDI) and [facility] Coding Staff appreciate your assistance in clarifying documentation. Please respond to the clarification below the line at the bottom and electronically sign. The CDI & [facility] Coding staff will review the response and follow-up if needed. Please note: Queries are made part of the Legal Health Record. If you have any questions, please contact the author of this message via ITS. Dear Dr. Weiner Documentation in the H&P, discharge summary and your 04/12 progress note included possibly acute alcohol intoxication and acute delirium tremens and also alcoholic hepatitis. Documentation in the ED note included suspect a component of thiamine deficiency. History/Risk Factors: Daily, heavy alcohol use, altered mental status, dehydration Clinical Indicators: Serum alcohol 142, altered mental status, hyponatremia Labs: Lactic acid 2.5, sodium 124, chloride 92, carbon dioxide 20, BUN 5, creatinine 6.1, creatine kinase 235, serum alcohol 142. Treatment: IV Ativan, IV and IM Thiamine, 1 Liter NS bolus then at 100 mls/hr Consults In your professional opinion, can you please clarify if the above clinical indicators and treatment signify any of the following? Alcohol withdrawal Alcohol withdrawal with withdrawal delirium Alcohol delirium Delirium tremens Impending delirium tremens Alcohol dependence with impending delirium tremens Alcohol dependence Alcohol abuse Alcohol abuse with preventative treatment for tremors Other, please specify Unable to determine AND Evidence of thiamine deficiency due to chronic alcohol use/alcoholism Prophylactic treatment of potential thiamine deficiency associated with alcohol use/alcoholism Unable to determine Other, please specify Alcohol withdrawal with withdrawal delirium MTDD
== END 2020-04-13 12:35 | disposition home or self-care (01) | DRG 896 ==
LOC: EC 12:03 → 3SCARD 14:39
PROVIDERS: ADMIT Hospitalist; ATTEND Hospitalist
DX: F10.231 Alcohol dependence with withdrawal delirium (principal); G93.41 Metabolic encephalopathy; E87.1 Hypo-osmolality and hyponatremia; E51.9 Thiamine deficiency, unspecified; K70.10 Alcoholic hepatitis without ascites; F10.229 Alcohol dependence with intoxication, unspecified; E78.5 Hyperlipidemia, unspecified; E86.0 Dehydration; F17.200 Nicotine dependence, unspecified, uncomplicated; F32.9 Major depressive disorder, single episode, unspecified; F41.0 Panic disorder [episodic paroxysmal anxiety]; G47.30 Sleep apnea, unspecified; I10 Essential (primary) hypertension; J44.9 Chronic obstructive pulmonary disease, unspecified; K21.9 Gastro-esophageal reflux disease without esophagitis; K64.9 Unspecified hemorrhoids; R79.89 Other specified abnormal findings of blood chemistry; Z11.59 Encounter for screening for other viral diseases; Z79.82 Long term (current) use of aspirin; Z79.899 Other long term (current) drug therapy; Z86.73 Personal history of transient ischemic attack (TIA), and cerebral infarction without residual deficits; Z90.49 Acquired absence of other specified parts of digestive tract; Z82.5 Family history of asthma and other chronic lower respiratory diseases; Y90.6 Blood alcohol level of 120-199 mg/100 ml
CPT/HCPCS: 36415; 70450; 70544; 70547; 70551; 71046; 80053; 80320; 81003; 82550; 83605; 83735; 84443; 85025; 85610; 85730; 96361; 96365; 99285

== ENCOUNTER → 2020-04-27 | Outpatient (CLI) | payer BC, OTHER ==
--- NOTE | 2020-04-27 12:19 | XR ---
EXAMINATION TYPE: XR soft tissue neck DATE OF EXAM: 04/27/2020 COMPARISON: NONE HISTORY: I10 Hypertension, E78.5 hyperlipidemia, E87.1 Hyp TECHNIQUE: 2 views of the soft tissues of the neck are submitted. FINDINGS: The airway is patent. Normal appearing epiglottis. Retropharyngeal soft tissues are withi n normal limits. No evidence for radiopaque foreign body. IMPRESSION: Negative study
--- NOTE | 2020-04-27 12:33 | ECHOF ---
Referral Reason:I10 Hypertension, E78.5 hyperlipidemia, E87.1 Hyp MEASUREMENTS -------- HEIGHT: 180.3 cm WEIGHT: 104.3 kg BP: IVSd: 1.3 cm (0.6 - 1.1) LVIDd: 3.2 cm (3.9 - 5.3) LVPWd: 1.4 cm (0.6 - 1.1) IVSs: 1.4 cm LVIDs: 1.4 cm LVPWs: 1.4 cm LAESV Index (A-L): 13.20 ml/m Ao Diam: 3.6 cm (2.0 - 3.7) AV Cusp: 2.2 cm (1.5 - 2.6) LA Diam: 3.3 cm (2.7 - 3.8) MV EXCURSION: 13.536 mm (> 18.000) MV EF SLOPE: 85 mm/s (70 - 150) EPSS: 0.7 cm MV E Christos: 0.77 m/s MV DecT: 116 ms MV A Christos: 1.30 m/s MV E/A Ratio: 0.59 RAP: 5.00 mmHg RVSP: 12.70 mmHg FINDINGS -------- Sinus rhythm. Resting tachycardia (HR>100bpm). This was a technically adequate study. The left ventricular size is normal. There is mild concentric left ventricular hypertrophy. Overa ll left ventricular systolic function is normal with, an EF between 55 - 60 %. The diastolic fillin g pattern is normal for the age of the patient 12.98. The right ventricle is normal in size. Normal LA size by volume 22+/-6 ml/m2. The right atrial size is normal. The aortic valve is trileaflet, and appears structurally normal. No aortic stenosis or regurgitation. The mitral valve is normal. There is trace mitral regurgitation. The tricuspid valve appears structurally normal. Trace tricuspid regurgitation present. Right jalen tricular systolic pressure is normal at < 35 mmHg. There is no pulmonic regurgitation present. The aortic root size is normal. Normal inferior vena cava with normal inspiratory collapse consistent with estimated right atrial pre ssure of 5 mmHg. There is no pericardial effusion. CONCLUSIONS -------- 1. There is mild concentric left ventricular hypertrophy. 2. Overall left ventricular systolic function is normal with, an EF between 55 - 60 %. 3. The diastolic filling pattern is normal for the age of the patient 12.98 4. Normal LA size by volume 22+/-6 ml/m2. 5. The aortic valve is trileaflet, and appears structurally normal. No aortic stenosis or regurgitati on. 6. There is trace mitral regurgitation. 7. Trace tricuspid regurgitation present. 8. There is no pulmonic regurgitation present. 9. There is no pericardial effusion. HOUSEKEEPING MANAGER: Lila Rain RDCS
== END | disposition home or self-care (01) ==
LOC: RADECHMAIN 11:31
PROVIDERS: ATTEND Nurse Practitioner Family
DX: I08.1 Rheumatic disorders of both mitral and tricuspid valves (principal); R22.1 Localized swelling, mass and lump, neck; E78.5 Hyperlipidemia, unspecified; I10 Essential (primary) hypertension; E87.1 Hypo-osmolality and hyponatremia
CPT/HCPCS: 70360; 93306

== ENCOUNTER → 2020-05-11 | Outpatient (CLI) | payer BC, OTHER ==
--- NOTE | 2020-05-11 17:43 | CTL ---
EXAMINATION TYPE: CT Low Dose Lung DATE OF EXAM ORDERED: 05/11/2020 HISTORY: Personal history of tobacco use. Lung cancer screening CT DLP: [address] CTDI: 2.33 mGy Automated exposure control for dose reduction was used. SCREENING VISIT: Yes COMPARISON: Low-dose lung CT 09/12/2016 TECHNIQUE: Low dose computed tomography scan was performed through the chest at 1 mm thick sections a nd reconstructed images in the coronal plane at [address] DIAGNOSTIC QUALITY: Satisfactory FINDINGS: LUNG NODULES: None. LUNGS: COPD: Severity: Mild Fibrosis: Severity: None Lymph nodes: No lymphadenopathy Other findings: None RIGHT PLEURAL SPACE: Effusion: None Calcification: None Thickening: None Pneumothorax: None LEFT PLEURAL SPACE: Effusion: None Calcification: None Thickening: None Pneumothorax: None HEART: Heart Size: Normal Coronary calcification: Mild Pericardial effusion: None OTHER FINDINGS: Upper abdomen: Normal Bony thorax: Degenerative changes of the visualized spine Supraclavicular region: No lymphadenopathy Other: None IMPRESSION: No evidence of pulmonary nodule or acute pulmonary process. FOLLOW UP CT CHEST RECOMMENDATION: Screening as clinically indicated CT LUNG RAD: Lung-Rad 1 Negative
== END | disposition home or self-care (01) ==
LOC: RADCTMAIN 13:49
PROVIDERS: ATTEND Family Medicine
DX: Z12.2 Encounter for screening for malignant neoplasm of respiratory organs (principal); F17.210 Nicotine dependence, cigarettes, uncomplicated

== ENCOUNTER → 2020-10-26 | Outpatient (CLI) | payer BC, OTHER ==
--- NOTE | 2020-10-26 15:32 | MR ---
EXAMINATION TYPE: MR knee RT wo con DATE OF EXAM: 10/26/2020 COMPARISON: None HISTORY: rt knee pain TECHNIQUE: Multiplanar, multisequence imaging of the right knee is performed without IV contrast. FINDINGS: MEDIAL MENISCUS: There is complex signal within the posterior horn medial meniscus with extension pos teriorly into the superior and inferior articular surfaces compatible with a complex tear. The anteri or horn medial meniscus appears intact. LATERAL MENISCUS: Some minimal increased signals within the anterior portion posterior horn lateral m eniscus. Communication with the articular surface is not identified. Anterior horn lateral meniscus a ppears intact. CRUCIATE LIGAMENTS: The anterior and posterior cruciate ligaments are intact and unremarkable. COLLATERAL LIGAMENTS: The medial collateral ligament and lateral collateral ligament complex are inta ct. There is increased signal adjacent to the medial collateral ligament suggesting strain. Lateral c ollateral ligament appears intact. EXTENSOR MECHANISM: Minimal increased signal is within the inferior patellar tendon. Strain should be considered EFFUSION: No significant suprapatellar joint effusion. POPLITEAL CYST: No popliteal/ornelas cyst. TRICOMPARTMENT SPACES: Preserved. CARTILAGE: Preserved the medial lateral compartments. There appears to be loss of the posterior oh lar cartilage. Correlate for osteoarthritic degenerative change, greater along the lateral aspect. BONE MARROW SIGNAL: Small amount of increased signal is within the lateral femoral condyle near the m eniscal tear likely related to a contusion OTHER: No additional significant abnormality is appreciated. IMPRESSION: 1. Contusion medial posterior femoral condyle adjacent to a complex tear of the posterior horn medial meniscus. Some mild strain of the medial collateral ligament is present. 2. Minimal patellar insertion strain may be present. 3. Chronic appearing osteoarthritic degenerative change of the posterior lateral patella
== END | disposition home or self-care (01) ==
LOC: RADMRIMAIN 12:10
PROVIDERS: ATTEND Family Medicine
DX: S80.01XA Contusion of right knee, initial encounter (principal); S83.241A Other tear of medial meniscus, current injury, right knee, initial encounter; M17.11 Unilateral primary osteoarthritis, right knee

== ENCOUNTER 2020-12-13 08:23 | Day surgery (SDC) | payer BC, OTHER ==
[2020-12-07 16:21] VITALS: BMI 34.4
--- NOTE | 2020-12-12 14:21 | HP ---
HISTORY AND PHYSICAL Surgery is 12/13/2020. Vaughn Taylor is a 60-year-old gentleman seen with progressive right knee pain. Options for treatment were discussed. He elected to proceed with arthroscopy. Consent obtained. PAST MEDICAL HISTORY: Hypertension, hyperlipidemia, gastroesophageal reflux disease. PAST SURGICAL HISTORY: Cholecystectomy, sinus surgery. DAILY MEDICATIONS: 1. Aspirin. 2. Atenolol. 3. Omeprazole. 4. Simvastatin. ALLERGIES: None. SOCIAL HISTORY: Smokes 1/2 pack of cigarettes daily. PHYSICAL EVALUATION RIGHT KNEE: Range of motion 0-125. Mild effusion. Tenderness medial joint line. Positive medial Katya's. Ligaments are stable. Hip rotation is without pain. Distal neurovascular exam is intact. Radiographs of the right knee revealed mild medial and moderate patellofemoral compartment osteoarthritis. Right knee MRI revealed a complex medial meniscal tear. IMPRESSION: 1. Internal derangement right knee with medial meniscal tear. 2. Hypertension. 3. Hyperlipidemia. PLAN: Right knee arthroscopy with partial meniscectomy and debridement. MMODL / IJN: [id number] /
[~2020-12-13 08:23] MED LIST changes: +DEXAMETHASONE SOD PHOSPHATE 4 MG/ML 1 ML VIAL IV ONE; +HYDROmorphone 0.5 MG/0.5 ML SYRINGE IVP PRN; +LIDOCAINE 1% (10MG/ML) FOR IV START INTRADERMA PRN; +ONDANSETRON 4 MG/2 ML VIAL IVP ONE; +SCOPOLAMINE 1.5MG/72HR PATCH TRANSDERM ONE
[2020-12-13] MEDS: LACTATED RINGERS 1,000 ML IV ONE (08:36)
[2020-12-13] MEDS ORDERED: LACTATED RINGERS 1,000 ML IV ONE ×2 (08:36→10:30)
[2020-12-13] MEDS ORDERED: BUPIVACAINE (PF) 0.25% 30 ML VIAL SQ ONE ×2 (09:14→09:49)
[2020-12-13] MEDS ORDERED: SUCCINYLCHOLINE CHLORIDE 100 MG/5 ML SYR IV ONE (09:22)
[2020-12-13] MEDS ORDERED: PROPOFOL 10 MG/ML 20 ML VIAL IV ONE (09:22)
[2020-12-13] MEDS ORDERED: fentaNYL (PF) 50 MCG/ML 2 ML AMP ONE (09:22)
[2020-12-13] MEDS ORDERED: HYDROmorphone (PF) 1 MG/ML ONE (09:22)
[2020-12-13] MEDS ORDERED: PHENYLEPHRINE-0.9% NACL SYG 1,000 MCG/10 ML SYRINGE ONE (09:22)
[2020-12-13] MEDS ORDERED: LIDOCAINE 1% INJ 10MG/ML (20 ML MDV) ONE (09:22)
[2020-12-13] MEDS ORDERED: KETOROLAC 15 MG/ML 1 ML VIAL ONE (09:22)
[2020-12-13] MEDS ORDERED: MIDAZOLAM 2 MG/2 ML VIAL ONE (09:22)
[2020-12-13 09:30] VITALS: RESP 16
--- NOTE | 2020-12-13 10:23 | P.OP ---
Date of Procedure: 12/13/20 Preoperative Diagnosis: Internal derangement right knee Postoperative Diagnosis: 1. Tear medial meniscus right knee 2. 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 Grade 2 chondromalacia medial femoral condyle right knee 4. Reactive synovitis medial, lateral and suprapatellar compartments right knee Procedure(s) Performed: 1. Arthroscopic partial medial meniscectomy right knee 2. Arthroscopic chondroplasty patellofemoral joint right knee 3. Arthroscopic microfracture femoral sulcus right knee 4. Arthroscopic partial synovectomy medial, lateral and suprapatellar compartments right knee Anesthesia: FERNIEA, local Surgeon: Job Ramos Estimated Blood Loss (ml): 5 Pathology: none sent Condition: stable Disposition: PACU Indications for Procedure: 60-year-old patient seen with progressive right knee pain. After treatment options were discussed, he elected to proceed with arthroscopy. Operative Findings: see description of procedure Description of Procedure: Patient was taken to the operative suite. Patient underwent a general anesthetic by the department of anesthesia. Patient was given preoperative antibiotics. The right lower extremity was placed in a well-padded arthroscopic leg corbett. The right leg was prepped and draped in the normal sterile orthopedic fashion. A lateral parapatellar and suprapatellar incision was made. Trochars were inserted. Arthroscopy was initiated. Suprapatellar pouch revealed diffuse thick reactive synovitis. The patellofemoral joint appeared to articulate congruently. There with grade 4 chondromalacia of both the patella and femoral sulcus with large areas of exposed bone on the patellar side and a small area of exposed bone in the central portion of the femoral sulcus, there were also some peripheral osteochondral tears present. The scope was guided into the medial gutter. No loose bodies or plica were identified. The scope was then guided into the medial compartment. A medial parapatellar incision was made. Trocar inserted followed by probe. There was a complex tear involving the posterior horn medial meniscus. There were grade 2 condylar she changes of the medial femoral condyle with some osteochondral flap tears present. There was thick reactive synovitis anteriorly. I performed a partial medial meniscectomy getting down to stable meniscal tissue. I performed a chondroplasty of the medial femoral condyle getting down to stable osteochondral tissue. I performed a partial synovectomy decompressing the thick reactive synovitis anteriorly. The shaver was now removed. The residual meniscus was probed and found to be stable. There was good decompression of the synovitis. The residual osteochondral surface was stable. Scope and probe were then guided into the intercondylar notch. Cruciates were identified, probed and found to be stable. The scope and probe were then guided into lateral compartment. Lateral meniscus revealed some superficial fraying in the midbody area. There were some grade 1/2 condylar she changes of the lateral compartment without evidence for osteochondral tears. There was thick reactive synovitis anteriorly. I debrided that ear superficial fraying. I performed a partial synovectomy decompressing thick reactive synovitis. The shaver was removed. There was good decompression of the synovitis. The scope was in guided back into the suprapatellar compartment. I introduced a motorized shaver into the super compartment. I debrided some piecemeal fragments of meniscus I encountered. I performed a chondroplasty of the patella and femoral sulcus. I performed a partial synovectomy decompressing the reactive synovitis. The shaver was removed. There was good decompression of synovitis. I now performed a microfracture to that femoral sulcus area penetrating the bone with resultant bleeding at the microfracture site. I now took one more look on the entire knee, no residual debris. Instruments were now removed from the joint. The joint was infiltrated with .25% Marcaine. Steri-Strips were applied to the portal sites. Sterile dressings were applied. The patient was placed into a BRIAN hose. No tourniquet was utilized. The patient was awakened, transferred to a bed and taken to recovery stable satisfactory condition.
[2020-12-13 10:24] VITALS: TEMP 97
[2020-12-13] MEDS ORDERED: traMADol 50 MG TAB ONE (11:47)
[2020-12-13] MEDS ORDERED: traMADol 50 MG TAB PO ONE (11:48)
[2020-12-13 12:15] VITALS: BP 118/77; PULSE 88
== END 2020-12-13 12:48 | disposition home or self-care (01) ==
LOC: OR 08:23
PROVIDERS: ATTEND Orthopaedic Surgery
DX: M23.203 Derangement of unspecified medial meniscus due to old tear or injury, right knee (principal); M22.41 Chondromalacia patellae, right knee; M65.861 Other synovitis and tenosynovitis, right lower leg; I10 Essential (primary) hypertension; E78.5 Hyperlipidemia, unspecified; K21.9 Gastro-esophageal reflux disease without esophagitis; F17.210 Nicotine dependence, cigarettes, uncomplicated; Z90.49 Acquired absence of other specified parts of digestive tract; Z98.890 Other specified postprocedural states; Z86.73 Personal history of transient ischemic attack (TIA), and cerebral infarction without residual deficits; Z79.82 Long term (current) use of aspirin; Z79.899 Other long term (current) drug therapy
CPT/HCPCS: 29881; 29879; J2250; J0690; J2001; J3010; J1170 ×2; J1885; J2370; J0330; J2704

== ENCOUNTER → 2021-02-08 | Outpatient (CLI) | payer BC, OTHER ==
--- NOTE | 2021-02-08 11:51 | CT ---
EXAMINATION TYPE: CT sinus wo con DATE OF EXAM: 02/08/2021 COMPARISON: None HISTORY: sinusitis CT DLP: 538.[address] of the paranasal sinuses was performed in the axial and coronal planes. Bone and soft tissue settings are submitted. The paranasal sinuses demonstrate normal aeration and development. There is mild mucosal thickening involving the maxillary sinuses, ethmoidal air cells and frontal sin uses. Bilateral medial maxillary antrectomy and partial ethmoidectomy. The osteal meatal units are patent bilaterally. The nasal septum is midline. No bony destructive changes are seen within the field of view. IMPRESSION: Mild chronic sinusitis and postoperative changes as noted.
== END | disposition home or self-care (01) ==
LOC: RADCTMAIN 10:42
PROVIDERS: ATTEND Family Medicine
DX: J32.9 Chronic sinusitis, unspecified (principal)
CPT/HCPCS: 70486

== ENCOUNTER → 2021-06-14 | Outpatient (CLI) | payer BC, OTHER ==
--- NOTE | 2021-06-14 13:23 | CTL ---
EXAMINATION TYPE: CT Low Dose Lung DATE OF EXAM ORDERED: 06/14/2021 HISTORY: 60-year-old male Z87.891 Personal history of tobacco use CT DLP: 154.[address] CTDI: 8.5 mGy Automated exposure control for dose reduction was used. SCREENING VISIT: Annual follow-up COMPARISON: 05/11/2020 TECHNIQUE: Low dose computed tomography scan was performed through the chest with coronal and sagitta l reconstructions. CT DIAGNOSTIC QUALITY: Satisfactory FINDINGS: Heart normal size without pericardial effusion. Scattered LCA, LAD, and circumflex coronary artery ca lcifications are present. Ectatic ascending aorta at 3.7 cm. Conventional arch vessel branching anatomy. No thoracic lymphadenopathy by CT size criteria. Mild diffuse bronchial wall thickening. Some strandy atelectasis anterior right midlung and posterio r right apex. No consolidation or pleural effusion. Stable calcified granuloma posterior right midlung and posterior right base. No suspicious pulmonary nodule or mass. Visualized upper abdomen shows no gross abnormality. Moderate degenerative disc disease and anterior spondylosis lower thoracic spine. IMPRESSION: 1. LUNG-RADS 2, benign; a couple calcified granulomas on the right. 2. Mild diffuse bronchial wall thickening suggests bronchitis or chronic asthma. Clinically correlate . Recommend smoking cessation. 3. Scattered coronary artery calcifications. CT LUNG RAD AND CT CHEST RECOMMENDATION: Lung-Rad 2 Benign Appearance or Behavior: Continue annual sc reening with LDCT in 12 months. S Modifier (other clinically significant findings): None
== END | disposition home or self-care (01) ==
LOC: RADCTMAIN 10:35
PROVIDERS: ATTEND Nurse Practitioner Family
DX: Z12.2 Encounter for screening for malignant neoplasm of respiratory organs (principal); J84.10 Pulmonary fibrosis, unspecified; J98.09 Other diseases of bronchus, not elsewhere classified; I25.10 Atherosclerotic heart disease of native coronary artery without angina pectoris
CPT/HCPCS: 71271

== ENCOUNTER → 2021-10-15 | Outpatient (CLI) | payer BC, OTHER ==
--- NOTE | 2021-10-16 05:18 | MR ---
EXAMINATION TYPE: MR brain wo con DATE OF EXAM: 10/15/2021 COMPARISON: 04/12/2020 HISTORY: CVA Multiplanar multiecho imaging of the brain without contrast. There is some cerebral cortical atrophy. There is no mass effect or midline shift. There is no sign o f intracranial hemorrhage. Diffusion images show no evidence of an acute infarct. On the T2 and FLAIR images there is some linea r increased signal adjacent to the lateral ventricles in the periventricular white matter. There are also scattered white matter high signal foci measuring up to 5 mm in the parietal lobes. Total number is approximately 20. Brainstem is intact. Cerebellum is intact. There is some mucosal thickening in the maxillary sinuses. Sella turcica is intact. Corpus callosum is intact. There is ethmoid sinus and frontal sinus mucosal thickening. IMPRESSION: White matter signal changes consistent with atrophy and chronic small vessel ischemia. Demyelinating disease not excluded. No change compared to the old exam. Pansinusitis without change.
== END | disposition home or self-care (01) ==
LOC: RADMRIMAIN 15:35
PROVIDERS: ATTEND Psychiatry & Neurology Neurology
DX: R93.0 Abnormal findings on diagnostic imaging of skull and head, not elsewhere classified (principal); J32.4 Chronic pansinusitis
CPT/HCPCS: 70551

== ENCOUNTER → 2022-08-01 | Outpatient (CLI) | payer OTHER | END | disposition home or self-care (01) | LOC: LABPAT 12:35 | PROVIDERS: ATTEND Orthopaedic Surgery | DX: Z01.812 Encounter for preprocedural laboratory examination (principal); Z22.322 Carrier or suspected carrier of Methicillin resistant Staphylococcus aureus; M17.11 Unilateral primary osteoarthritis, right knee | CPT/HCPCS: 87070 ==

== ENCOUNTER 2022-08-18 05:53 | Day surgery (SDC) | payer OTHER ==
[2022-08-14 10:40] VITALS: BMI 31.1
--- NOTE | 2022-08-18 01:12 | HP ---
HISTORY AND PHYSICAL DATE OF SURGERY: 08/18/2022. HISTORY OF PRESENT ILLNESS: Vaughn Taylor is a 62-year-old patient, seen with symptomatic right knee osteoarthritis. We discussed options for treatment. He elected to proceed with right total knee arthroplasty. Consent regarding the procedure was obtained. Medical clearance was provided. PAST MEDICAL HISTORY: Hypertension, hyperlipidemia, gastroesophageal reflux disease. PAST SURGICAL HISTORY: Cholecystectomy, sinus surgery. DAILY MEDICATIONS: 1. Aspirin. 2. Atenolol. 3. Omeprazole. 4. Simvastatin. 5. Vitamins. ALLERGIES: None. SOCIAL HISTORY: Smokes cigarettes. PHYSICAL EVALUATION OF THE RIGHT KNEE: Range of motion is -4/5 to 110 degrees. Mild effusion. Tenderness along the medial joint line. Crepitus along the medial patellofemoral compartments with range of motion. Pain with patellofemoral compression. Ligaments stable. Hip rotation is without pain. His distal neurovascular exam is intact. RADIOGRAPHS: Radiographs of the right knee reveal severe patellofemoral compartment osteoarthritis, osteophytes, and subchondral sclerotic changes present as well. IMPRESSION: 1. Right knee osteoarthritis. 2. Hypertension. 3. Hyperlipidemia. 4. Gastroesophageal reflux disease. PLAN: Right total knee arthroplasty. MMODL / IJN: [id number] /
[~2022-08-18 05:53] MED LIST changes: +ACETAMINOPHEN TAB 500 MG TAB PO PRN; -DEXAMETHASONE SOD PHOSPHATE 4 MG/ML 1 ML VIAL IV ONE; -HYDROmorphone 0.5 MG/0.5 ML SYRINGE IVP PRN; -LACTATED RINGERS 1,000 ML IV SCH; -LIDOCAINE 1% (10MG/ML) FOR IV START INTRADERMA PRN; +MELOXICAM 7.5 MG TAB PO PRN; -ONDANSETRON 4 MG/2 ML VIAL IVP ONE; -SCOPOLAMINE 1.5MG/72HR PATCH TRANSDERM ONE; +TRANEXAMIC ACID IN NACL,ISO-OS 1,000 MG in SALINE 1 100ML.BAG IVPB PRN
[2022-08-18] MEDS ORDERED: LACTATED RINGERS 1,000 ML IV ONE ×3 (06:35→10:20)
[2022-08-18] MEDS ORDERED: LIDOCAINE 1% (10MG/ML) FOR IV START INTRADERMA ONE (06:35)
[2022-08-18 06:44] LABS: Glucose,Whole Blood 143 mg/dL (70-110)
[2022-08-18] MEDS ORDERED: ONDANSETRON 4 MG/2 ML VIAL ONE (06:44)
[2022-08-18 06:48] LABS: Basophils # (A) 0.1 k/uL (0-0.2); Basophils % (A) 1 %; Eosinophils # (A) 0.1 k/uL (0-0.7); Eosinophils % (A) 2 %; HCT 36.6 % (39.0-53.0); HGB 13.1 gm/dL (13.0-17.5); Lymphocytes # (A) 1.8 k/uL (1.0-4.8); Lymphocytes % (A) 34 %; MCH 33.6 pg (25.0-35.0); MCHC 35.8 g/dL (31.0-37.0); MCV 93.8 fL (80.0-100.0); Mean Platelet Volume 7.4; Monocytes # (A) 0.4 k/uL (0-1.0); Monocytes % (A) 8 %; Neutrophils # (A) 2.7 k/uL (1.3-7.7); Neutrophils % (A) 53 %; Platelet Count 254 k/uL (150-450); RDW 12.4 % (11.5-15.5); WBC 5.2 k/uL (3.8-10.6)
[2022-08-18] MEDS ORDERED: ONDANSETRON 4 MG/2 ML VIAL IVP ONE (07:16)
[2022-08-18] MEDS ORDERED: MIDAZOLAM 2 MG/2 ML VIAL IV ONE (07:16)
[2022-08-18] MEDS ORDERED: fentaNYL (PF) 50 MCG/1 ML VIAL IV ONE (07:16)
[2022-08-18] MEDS ORDERED: DEXAMETHASONE SOD PHOSPHATE 4 MG/ML 1 ML VIAL IV ONE (07:16)
[2022-08-18] MEDS ORDERED: SUCCINYLCHOLINE CHLORIDE 200 MG/10 ML VIAL IV ONE (07:32)
[2022-08-18] MEDS ORDERED: LIDOCAINE 2% INJ 20 MG/ML (2 ML VIAL) ONE (07:32)
[2022-08-18] MEDS ORDERED: fentaNYL (PF) 50 MCG/ML 2 ML AMP ONE (07:32)
[2022-08-18] MEDS ORDERED: ROPIVACAINE 5 MG/ML 30 ML VIAL ONE (07:32)
[2022-08-18] MEDS ORDERED: HYDROmorphone (PF) 1 MG/ML ONE (07:32)
[2022-08-18] MEDS ORDERED: PROPOFOL 10 MG/ML 20 ML VIAL IV ONE (07:32)
[2022-08-18] MEDS ORDERED: TRANEXAMIC ACID IN NACL,ISO-OS 1,000 MG/100 ML BAG ONE (07:32)
[2022-08-18] MEDS ORDERED: SODIUM CHLORIDE 0.9% (PF) 10 ML VIAL ONE (07:32)
[2022-08-18] MEDS ORDERED: GLYCOPYRROLATE 0.2 MG/ML 2 ML VIAL ONE (07:32)
[2022-08-18] MEDS ORDERED: PHENYLEPHRINE-0.9% NACL SYG 1,000 MCG/10 ML SYRINGE ONE (07:32)
[2022-08-18] MEDS ORDERED: ROCURONIUM 10 MG/ML (5 ML VIAL) IV ONE (07:32)
[2022-08-18] MEDS ORDERED: ePHEDrine 50 MG/ML 1 ML VIAL ONE (07:32)
[2022-08-18] MEDS ORDERED: NEOSTIGMINE 1 MG/ML 10 ML VIAL ONE (07:32)
[2022-08-18] MEDS ORDERED: ceFAZolin 1,000 MG in SODIUM CHLORIDE 0.9% 1,000 ML IRRIGATION ONE (07:40)
--- NOTE | 2022-08-18 08:04 | P.ANPRN ---
Procedure Note - Anesthesia - Nerve Block Performed Right Adductor Canal Infusion Time Out Performed: Yes (715) Date of Procedure: 08/18/22 Procedure Start Time: Procedure Stop Time: Location of Patient: PreOp Indication: Acute Post-Operative Pain, Requested by Surgeon Sedation Type: Sedate with meaningful contact maintained Preparation: Sterile Prep, Sterile Dressing Position: Supine Catheter: Indwelling Needle Types: On-Q Needle Gauge: 18 Ultrasound used to visualize needle placement: Yes Ultrasound used to observe medication spread: Yes Injectate: Other (see comment) (20 mL of block solution injected with intermittent negative aspiration. Block solution containing 10 ML of 0.5% ropivacaine mixed with 10 ML of preservative-free normal saline) Narrative: 5 mL of block solution used as a test dose after negative aspiration once the catheter is in place. Blood Aspirated: No Pain Paresthesia on Injection Noted: No Resistance on Injection: Normal Image Stored and Saved: Yes Events: Uneventful and Well Tolerated Right iPack Infusion Time Out Performed: Yes (715) Date of Procedure: 08/18/22 Procedure Start Time: Procedure Stop Time: Location of Patient: PreOp Indication: Acute Post-Operative Pain, Requested by Surgeon Sedation Type: Sedate with meaningful contact maintained Preparation: Sterile Prep, Sterile Dressing Position: Supine Catheter: None Needle Types: Pajunk Needle Gauge: 21 Ultrasound used to visualize needle placement: Yes Ultrasound used to observe medication spread: Yes Injectate: 0.5% Ropivacaine (see comment for volume) (20 mL of block solution injected with intermittent negative aspiration. Block solution containing 10 ML of 0.5% ropivacaine mixed with 10 ML of preservative-free normal saline) Blood Aspirated: No Pain Paresthesia on Injection Noted: No Resistance on Injection: Normal Image Stored and Saved: Yes Events: Uneventful and Well Tolerated
[2022-08-18] MEDS ORDERED: HYDROcodone/APAP 7.5-325MG 1 EACH TAB PO PRN (09:15)
[2022-08-18] MEDS ORDERED: HYDROmorphone 0.5 MG/0.5 ML SYRINGE IVP PRN ×2 (09:15)
[2022-08-18] MEDS ORDERED: HYDROmorphone 1 MG/ML 1 ML SYRINGE IVP PRN (09:15)
[2022-08-18] MEDS ORDERED: NALOXONE 0.4 MG/ML 1 ML VIAL IV PRN (09:15)
[2022-08-18] MEDS ORDERED: HYDROcodone/APAP 5-325MG 1 EACH TAB PO PRN (09:15)
[2022-08-18] MEDS ORDERED: ONDANSETRON 4 MG/2 ML VIAL IVP PRN (09:15)
--- NOTE | 2022-08-18 09:15 | P.OP ---
Date of Procedure: 08/18/22 Preoperative Diagnosis: Right knee osteoarthritis Postoperative Diagnosis: Right knee osteoarthritis Procedure(s) Performed: Right total knee arthroplasty Implants: 1. Depuy attune size 8 right cruciate retaining cemented femur 2. Depuy attune size 7 fixed bearing cemented tibial baseplate 3. Depuy attune size 8 fixed bearing cruciate retaining 6 mm polyethylene tibial insert 4. Depuy attune 41 mm all polyethylene cemented patella Anesthesia: GETA, regional (Adductor canal catheter, Ipack block) Surgeon: Job Ramos Line Technician #1: Jeff Davis Estimated Blood Loss (ml): 45 Pathology: other (Bone) Condition: stable Disposition: PACU Indications for Procedure: 62-year-old patient seen with symptomatic right knee osteoarthritis. After having treatment options discussed, he elected to proceed with total knee arthroplasty. Operative Findings: See description of procedure Description of Procedure: Patient was taken to the operative suite after having an adductor canal catheter placed by the department of anesthesia. Patient underwent a general anesthetic by the department of anesthesia. Patient was given preoperative IV intake antibiotics and TXA. A well-padded tourniquet was placed about the right lower extremity. The lower extremity was then prepped and draped in the normal sterile orthopedic fashion. The extremity was elevated, a tourniquet was insufflated to 300. A standard anterior incision was made sharply through skin. Dissection was taken down through the subcutaneous soft tissues down to the extensor mechanism. A medial arthrotomy was performed, patella was everted and knee was flexed. There was advanced osteoarthritis noted. I introduced my distal intramedullary femoral drill. I then introduced the distal femoral cut ting jig. Mark KEVIN secured the cutting jig with 2 pins. I held retractors in position while Mark KEVIN performed the distal femoral resection through the guide area we now removed her distal femoral cutting guide. We now placed our 4-in-1 femoral cutting block and positioned and it was secured with 2 pins by Mark KEVIN while I held the block in position. The distal femoral finishing was now completed. A proximal tibial cutting guide was positioned. I held the guide in the appropriate position with both hands well Mark KEVIN inserted stabilizing pins into the guide. Proximal tibial cut was made. We now placed a trial femoral component into position, along with an appropriate size tibial tray and insert. We now took the knee through range of motion and had full extension good flexion and good overall soft tissue balance noted. The patella was everted and stabilized with 2 towel clips held by Mark KEVIN while I performed a flush with patellar quad tendon utilizing a fresh sawblade. We templated the patella, appropriate drill holes were made. An appropriate trial patella was positioned, knee was taken through full range of motion with the patella tracking very nicely. The trial patella was removed. Drill holes were made through the femoral component. All trial components were removed after marking off the appropriate rotation of the tibia. Retractors were now positioned along the proximal tibia. An appropriate keel punch was made with the appropriate size tibial guide by myself on Mark KEVIN assisted by holding retractors. At this point appropriate size implants were chosen and opened. The joint was irrigated copiously with pulse lavage mechanical irrigation. The wound was irrigated with pulse lavage mechanical irrigation. We mixed antibiotic methylmethacrylate. We placed the knee into flexion. We placed multiple retractors assisted by Mark KEVIN to expose the proximal tibia. Once the methyl methacrylate was ready, the tibial component was cemented into place removing any excess methylmethacrylate form by both myself and Mark KEVIN. The femoral component was cemented into place removing the removing any excess methylmethacrylate performed by both myself and Mark KEVIN. We then inserted the appropriate size polyethylene tibial insert. We made sure that it was locked into position. We took the knee into full extension, and then back in a flexion making sure we had removed any excess methylmethacrylate. The patellar component was then cemented down and secured with clamp. Excess methylmethacrylate removed. We kept the knee in full extension, patellar clamp in position until methylmethacrylate had hardened. Once it had hardened the patellar clamp was removed. The knee was taken through full range of motion. The patella tracked nicely. There was good soft tissue balancing. The tourniquet was now released. Additional hemostasis was achieved via electrocautery. A second gram of TXA was given. The wound again was irrigated with pulse lavage mechanical irrigation. The extensor mechanism was repaired with Ethibond. We checked the repair with range of motion and it was stable. The subcutaneous soft tissues were repaired with Vicryl in layers. The skin was approximated with pernio/Dermabond. Sterile dressings were applied followed by loose web roll and Curt bandage. The patient was transferred to a bed, and taken to recovery in stable and satisfactory condition. Mark KEVIN assisted with this complex procedure.
[2022-08-18] MEDS ORDERED: HYDROmorphone 0.5 MG/0.5 ML SYRINGE IVP ONE (09:48)
[2022-08-18] MEDS ORDERED: ROPIVACAINE 1,100 MG, SODIUM CHLORIDE 0.9% 500 ML 330 ML, EMPTY PAIN BALL 1 EACH MISCELLANE PRN ×2 (09:52)
--- NOTE | 2022-08-18 09:56 | XR ---
EXAMINATION TYPE: XR knee limited RT DATE OF EXAM: 08/18/2022 COMPARISON: None HISTORY: Postop knee replacement TECHNIQUE: 2 view right knee FINDINGS: Tibial and femoral components in place. Postsurgical soft tissue changes are evident. No ac [place] fractures are evident. IMPRESSION: 1. No acute fracture post knee replacement
[2022-08-18] MEDS ORDERED: KETOROLAC 15 MG/ML 1 ML VIAL IVP ONE (09:57)
[2022-08-18 10:11] VITALS: TEMP 98.3
[2022-08-18 13:53] VITALS: BP 125/72; PULSE 79; RESP 15
== END 2022-08-18 14:15 | disposition home health service (06) ==
LOC: OR 05:53
PROVIDERS: ATTEND Orthopaedic Surgery
DX: M17.11 Unilateral primary osteoarthritis, right knee (principal); G89.18 Other acute postprocedural pain; M25.461 Effusion, right knee; I10 Essential (primary) hypertension; E78.5 Hyperlipidemia, unspecified; Z90.49 Acquired absence of other specified parts of digestive tract; Z98.890 Other specified postprocedural states; Z79.82 Long term (current) use of aspirin; Z79.83 Long term (current) use of bisphosphonates; Z79.810 Long term (current) use of selective estrogen receptor modulators (SERMs); Z79.02 Long term (current) use of antithrombotics/antiplatelets
CPT/HCPCS: 97110; 97161; 64999; 64448; 76942; 85025; 88300; 73560; 27447; C1776; C1713 ×2; J2250; J0330; J1100; J2710; J0690 ×2; J2405; J3010; J1170 ×2; J2795; J1885; J2370; J2704; J2001

== ENCOUNTER 2022-08-18 22:29 | Emergency (ER) | payer OTHER ==
[2022-08-18 22:40] VITALS: BP 137/79; PULSE 90; RESP 18; TEMP 98.6
--- NOTE | 2022-08-18 23:45 | ED ---
Male Urogenital HPI - General Chief complaint: Urogenital Stated complaint: Difficulty Urinating,Revisit Time Seen by Provider: 08/18/22 22:47 Source: patient Mode of arrival: wheelchair Limitations: no limitations - History of Present Illness Initial comments: This is a pleasant 62-year-old male who presents to the emergency department after having knee surgery earlier today. Chief complaint is urinary retention. Told that he might have some urinary retention due to the anesthesia he received. Plan some discomfort in the suprapubic area. States he been able to dribble out a little bit of urine. No previous history of prostate problems. No headache, no fever or chills, no changes in vision or hearing, no sore throat or difficulty with speech, no neck pain, no chest pain or shortness of breath, no abdominal pain, no nausea or vomiting, no changes bowel movements, no numbness or tingling, no extremity pain, no skin rashes or lesions. Past medical, surgical, social, and family history reviewed. - Related Data Home Medications Medication Instructions Recorded Confirmed atenoloL [Tenormin] 25 mg PO [facility] 08/10/15 08/14/22 Magnesium Oxide [Mag-Ox] 400 mg PO HS 04/11/20 08/14/22 Simvastatin [Zocor] 40 mg PO HS 04/11/20 08/14/22 Famotidine 20 mg PO HS 12/07/20 08/14/22 Sodium Bicarbonate 325 mg PO HS 12/07/20 08/14/22 Allerzyme 1 tab PO HS 08/14/22 Montelukast [Singulair] 10 mg PO DAILY 08/14/22 08/14/22 Pantoprazole [Protonix] 40 mg PO DAILY 08/14/22 08/14/22 Sennosides [Senokot] 8.6 mg PO DAILY 08/14/22 08/14/22 Sennosides [Senokot] 17.2 mg PO HS 08/14/22 08/14/22 buPROPion [Wellbutrin] 100 mg PO BID 08/14/22 08/14/22 metFORMIN HCL [Glucophage] 500 mg PO DAILY 08/14/22 08/14/22 Previous Rx's Medication Instructions Recorded Aspirin [Adult Low Dose Aspirin EC] 81 mg PO BID #60 tab 08/18/22 HYDROcodone/APAP 7.5-325MG [Adolphus 1 each PO Q6HR PRN #28 tab 08/18/22 7.5] Pregabalin [Lyrica] 75 mg PO BID 14 Days #21 cap 08/18/22 Tamsulosin HCl [Flomax] 0.4 mg PO DAILY #7 capsule 08/18/22 polyethylene glycoL 3350 [Miralax] 17 gm PO DAILY PRN #21 packet 08/18/22 Allergies Allergy/AdvReac Type Severity Reaction Status Date / Time No Known Allergies Allergy Verified 08/18/22 22:40 Review of Systems ROS Statement: Those systems with pertinent positive or pertinent negative responses have been documented in the HPI. ROS Other: All systems not noted in ROS Statement are negative. Past Medical History Past Medical History: COPD, CVA/TIA, GERD/Reflux, Hyperlipidemia, Hypertension, Sleep Apnea/CPAP/BIPAP Additional Past Medical History / Comment(s): TIA-no effects, hx HEMORRHOIDS, seizure as child, hx of low sodium History of Any Multi-Drug Resistant Organisms: None Reported Past Surgical History: Cholecystectomy, Joint Replacement Additional Past Surgical History / Comment(s): sinus surgery, cyst removed from throat. COLONOSCOPY, prostate surgery, Past Anesthesia/Blood Transfusion Reactions: No Reported Reaction Past Psychological History: Anxiety, Depression, Panic Disorder Smoking Status: Current every day smoker Past Alcohol Use History: Daily, Heavy Past Drug Use History: None Reported - Past Family History Mother Family Medical History: No Reported History Father Family Medical History: COPD General Exam Limitations: no limitations General appearance: alert, in no apparent distress Head exam: Present: atraumatic, normocephalic, normal inspection Eye exam: Present: normal appearance, PERRL, EOMI. Absent: scleral icterus, conjunctival injection, periorbital swelling ENT exam: Present: normal exam, mucous membranes moist Neck exam: Present: normal inspection. Absent: tenderness, meningismus, lymphadenopathy Respiratory exam: Present: normal lung sounds bilaterally. Absent: respiratory distress, wheezes, rales, rhonchi, stridor Cardiovascular Exam: Present: regular rate, normal rhythm, normal heart sounds. Absent: systolic murmur, diastolic murmur, rubs, gallop, clicks GI/Abdominal exam: Present: soft, distended (I'll suprapubic), tenderness (Suprapubic, mild), normal bowel sounds. Absent: guarding, rebound, rigid Extremities exam: Present: normal capillary refill. Absent: pedal edema Back exam: Present: normal inspection Neurological exam: Present: alert, oriented X3, CN II-XII intact Psychiatric exam: Present: normal affect, normal mood Skin exam: Present: warm, dry, intact, normal color. Absent: rash Course Vital Signs 08/18/22 22:36 Temperature 98.6 F Pulse Rate 90 Respiratory 18 Rate Blood Pressure 137/79 O2 Sat by Pulse 99 Oximetry - Reevaluation(s) Reevaluation #1: 08/18/22 23:57 Medical record is reviewed Symptoms are improved here in the emergency department Patient is informed of results and questions answered Patient in no distress Procedures - Procedures Initial comment: Lam catheter placed, 1300 mL of urine evacuated. Patient improved. Medical Decision Making - Medical Decision Making Postsurgical urinary retention, no evidence of infectious process. Patient was told to return to the ER for any signs or symptoms worsen. Told to return immediately if any other problems arise. All questions answered. Treatment plan discussed. Patient in agreement Every effort has been made to ensure accuracy of this dictation. However, due to the limitations of electronic medical records and dictation devices, errors in charting still occur. We'll send the patient home with a leg bag for [address] Giovanni Shah Disposition Clinical Impression: Postprocedural urinary retention Disposition: HOME SELF-CARE Condition: Good Instructions (If sedation given, give patient instructions): Urinary Retention in Men (ED), Lam Catheter Placement and Care (ED) Additional Instructions: Follow-up with your regular physician as directed. Return to the ER immediately if any symptoms worsen, new symptoms arise, or any other problems develop. Follow-up to have the Lam catheter removed in 48 hours. Is patient prescribed a controlled substance at d/c from ED?: No Referrals: [facility],Clinic [Primary Care Provider] - 08/20/22 Time of Disposition: 23:57
== END 2022-08-19 00:14 | disposition home or self-care (01) ==
LOC: EC 22:29
DX: N99.89 Other postprocedural complications and disorders of genitourinary system (principal); R33.8 Other retention of urine; J44.9 Chronic obstructive pulmonary disease, unspecified; K21.9 Gastro-esophageal reflux disease without esophagitis; E78.5 Hyperlipidemia, unspecified; F17.200 Nicotine dependence, unspecified, uncomplicated; I10 Essential (primary) hypertension; Z86.73 Personal history of transient ischemic attack (TIA), and cerebral infarction without residual deficits; Z90.49 Acquired absence of other specified parts of digestive tract; Z79.82 Long term (current) use of aspirin; Z79.899 Other long term (current) drug therapy
CPT/HCPCS: 51702; 51798; 99283

== ENCOUNTER → 2023-05-22 | Outpatient (CLI) | payer OTHER ==
--- NOTE | 2023-05-22 11:59 | MR ---
EXAMINATION TYPE: MR shoulder RT wo con DATE OF EXAM: 05/22/2023 COMPARISON: X-ray 05/12/2023 HISTORY: Right shoulder pain. TECHNIQUE: Multiplanar, multisequence imaging of the right shoulder is performed without contrast. FINDINGS: Rotator Cuff: There is mass effect and edema in the supraspinatus tendon muscle. There is intrasubsta nce abnormal signal near the insertion of distal fibers compatible with tendinosis with no through th ickness tear. Infraspinatus and subscapularis tendons demonstrate intrasubstance signal greater involvement near th e insertion of the subscapularis at the left tendinosis and intrasubstance tear. Acromioclavicular Joint: Hypertrophic change with osteophytes causing mass effect and impingement of the supraspinatus tendon. Reactive marrow changes involving the distal clavicle and acromion secondar y to AC joint arthropathy. Glenohumeral Joint: A complete loss of joint space with [id number] and loss of articular cartilage of the glenoid. There is spurring along the lower margin of the humeral head and there is marrow marcelino a involving the glenoid and humeral head likely reactive. There is a small joint effusion. Labrum: There is abnormal signal noted within the hand superior and inferior labrum compatible with d egenerative labral tears. Inferior glenohumeral ligament appears intact. Biceps Tendon: The long head of biceps is in normal location within bicipital groove. There is diffus e increased signal surrounding the tendon within she as well as intrasubstance signal near the intrac apsular portion of the tendon compatible with tendinosis. Small areas of signal within the tendon she ath along the course of the tendon are suggestive of loose body. IMPRESSION: 1. Advanced osteoarthritis with loss of joint space and [id number] of the right shoulder. Degenerat ana lilia labral tears. 2. 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 Tendinosis of the supraspinatus tendon, infraspinatus tendon and there is increased intrasubstance signal at the inser tion of the scapularis tendon compatible with tendinosis and partial intrasubstance tear. 3. Severe bicipital tendinosis with small loose bodies seen within the tendon sheath.
== END | disposition home or self-care (01) ==
LOC: RADMRIMAIN 09:20
PROVIDERS: ATTEND Orthopaedic Surgery
DX: M19.011 Primary osteoarthritis, right shoulder (principal); M25.811 Other specified joint disorders, right shoulder; M67.813 Other specified disorders of tendon, right shoulder

== ENCOUNTER → 2023-07-02 | Outpatient (CLI) | payer MEDICARE, OTHER ==
[2023-07-02 10:10] LABS: African American GFR (CKD) >90 (>60 ml/min/1.73 sqM); Blood Urea Nitrogen 17 mg/dL (9-20); Non-African American GFR(CKD) >90 (>60 ml/min/1.73 sqM)
--- NOTE | 2023-07-02 11:09 | CT ---
EXAMINATION TYPE: CT soft tissue neck w con DATE OF EXAM: 07/02/2023 COMPARISON: 04/09/2020 HISTORY: left localized swelling, mass and lump CT DLP: 711 mGycm CONTRAST: CT scan of the neck is performed with IV Contrast, patient injected with 100 mL of Isovue 300. Contrast enhanced CT of the neck was performed from the skull base through the lung apices. A BB jae er is placed over the left neck at the site of clinical concern. At the site of clinical concern left neck there is no evidence for soft tissue mass. Slight asymmetry of the sternocleidomastoid musculature and a dominant left internal jugular vein noted on the left.. AIRWAY: The supraglottic, glottic, and subglottic portions of the airway appear patent and free of mass. SALIVARY GLANDS: The submandibular and parotid glands are free of mass or inflammatory process. THYROID GLAND: No nodules or masses seen. LYMPH NODES: No adenopathy seen greater than 1cm. LUNG APICES: No nodule or mass is seen. OTHER: Vascular structures are patent. No significant degenerative change of the cervical spine. N o abscess seen. IMPRESSION: At the site of clinical concern left neck there is no evidence for soft tissue mass. Slight asymmetry of the sternocleidomastoid musculature and a dominant left internal jugular vein noted.
== END | disposition home or self-care (01) ==
LOC: RADCTMAIN 09:29
PROVIDERS: ATTEND Otolaryngology
DX: R22.1 Localized swelling, mass and lump, neck (principal)
CPT/HCPCS: 82565; 84520; 70491; 36415; Q9967

== ENCOUNTER → 2023-12-08 | Outpatient (CLI) | payer OTHER ==
--- NOTE | 2023-12-08 15:28 | US ---
EXAMINATION TYPE: US Aorta Screening DATE OF EXAM: 12/08/2023 COMPARISON: NONE CLINICAL INDICATION: Male, 63 years old with history of Z13.6 SCREENING FOR CARDIOVASCULAR DISORDERS; No hx of AAA. Previous smoker. HTN controlled with meds. TECHNIQUE: Multiple sonographic images of the abdominal aorta are obtained. 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 Limited visualization of mid portion due to mary wel gas. IMPRESSION: The proximal abdominal aorta is borderline ectatic at 2.5 cm. No sonographic evidence for AAA.
== END | disposition home or self-care (01) ==
LOC: RADUSWWP 09:03
PROVIDERS: ATTEND Family Medicine
DX: Z13.6 Encounter for screening for cardiovascular disorders (principal); I77.811 Abdominal aortic ectasia; I10 Essential (primary) hypertension; Z87.891 Personal history of nicotine dependence
CPT/HCPCS: 76706

== ENCOUNTER → 2024-03-21 | Outpatient (CLI) | payer MEDICARE, OTHER ==
--- NOTE | 2024-03-21 19:49 | US ---
EXAMINATION TYPE: US venous doppler duplex LE RT DATE OF EXAM: 03/21/2024 2:34 PM COMPARISON: NONE CLINICAL INDICATION: Male, 63 years old with history of RLE R22; Patient states doctor felt leg was s wollen. No redness. SIDE PERFORMED: Right TECHNIQUE: The lower extremity deep venous system is examined utilizing real time linear array sonog ancelmo with graded compression, doppler sonography and color-flow sonography. VESSELS IMAGED: Common Femoral Vein Deep Femoral Vein Greater Saphenous Vein * Femoral Vein Popliteal Vein Small Saphenous Vein * Proximal Calf Veins (* superficial vessels) Grayscale, color doppler, spectral doppler imaging performed of the deep veins of the right lower ext remity. There is normal flow, compressibility, vascular waveforms. Right Leg: Negative for DVT IMPRESSION: No deep venous thrombosis of the right lower extremity.
== END | disposition home or self-care (01) ==
LOC: RADUSWWP 14:16
PROVIDERS: ATTEND Internal Medicine
DX: R22.41 Localized swelling, mass and lump, right lower limb (principal)

== ENCOUNTER → 2024-11-01 | Outpatient (CLI) | payer MEDICARE, OTHER ==
--- NOTE | 2024-11-01 17:03 | CTL ---
EXAMINATION TYPE: CT Low Dose Lung DATE OF EXAM ORDERED: 11/01/2024 COMPARISON: 07/21/2023 CLINICAL INDICATION: Male, 64 years old with history of Z12.2 ENCNTR SCREEN FOR MALIGNANT NEOPLASM OF RESP; PHH, Personal hx nicotine dependence, former smoker quit March 2024, was 1 ppd x 40 years. Hx C OPD, Lung cancer screening, History of Smoking/tobacco use. TECHNIQUE: Low dose computed tomography scan was performed through the chest at 1 mm thick sections a nd reconstructed images in multiple planes at 1 mm and [address] DLP: [address] CTDI: 2.41 mGy Automated exposure control for dose reduction was used. CT DIAGNOSTIC QUALITY: Satisfactory FINDINGS: Findings: There are 2 stable sub-4 mm nodules in the right lower lobe. There is no new or suspicious lung mass or nodule. There is no lung consolidation or abnormal interstitial density. There is no pleural effusion or pneumothorax. The great vessels and heart are normal in size. There is no mediastinal, hilar or axillary adenopathy. Limited scanning through the upper abdomen reveals no gross abnormality. There are no focal osseous lesions. IMPRESSION: 1. Lung RADS category 2 benign. Continue routine screening at yearly intervals. 2. No acute cardiopu lmonary disease. [facility], , 11/01/2024 5:01 PM
== END | disposition home or self-care (01) ==
LOC: RADCTMAIN 15:51
PROVIDERS: ATTEND Internal Medicine
DX: Z12.2 Encounter for screening for malignant neoplasm of respiratory organs (principal); Z87.891 Personal history of nicotine dependence
CPT/HCPCS: 71271